=== PATIENT | male | born 1950 | race Caucasian/White ===

== ENCOUNTER 2020-03-27 07:01 | Outpatient (REF) | payer MEDICARE, SELFPAY ==
[2020-03-27 07:36] LABS: MANUAL DIFF FLAG NO
[2020-03-27 07:40] LABS: Basophils Percent Auto 0.3 % (0-2); Eosinophils Absolute Auto 0.1 X10*3/uL (0.0-0.4); Eosinophils Percent Auto 2.2 % (0-4); Hematocrit 43.2 % (42-52); Hemoglobin 14.6 g/dl (14.0-18.0); Imm Gran Abs Auto 0.02 X10*3/uL (0.00-0.03); Imm Gran Pct Auto 0.3 % (0.0-0.4); Lymphocytes Absolute Auto 1.9 X10*3/uL (1.2-4.9); Lymphocytes Percent Auto 32.2 % (20-40); Mean Corpuscular HGB Conc 33.8 g/dl (31.0-36.0); Mean Corpuscular Hemoglobin 31.9 pg (27.0-33.0); Mean Corpuscular Volume 94.3 fL (80-98); Mean Platelet Volume 10.1 fL (9.4-12.4); Monocytes Absolute Auto 0.5 X10*3/uL (0.1-1.2); Monocytes Percent Auto 8.8 % (2-11); Neutrophils Absolute Auto 3.3 X10*3/uL (2.0-8.3); Neutrophils Percent Auto 56.2 % (45-73); Platelet Count 268 X10*3/uL (160-400); Red Blood Count 4.58 X10*6/uL (4.60-5.80); Red Cell Distribution Width 12.4 % (11.0-16.0); White Blood Count 5.9 X10*3/uL (4.8-10.8)
[2020-03-27 08:00] LABS: Alanine Aminotransferase 23 U/L (0-40); Albumin Level 4.8 g/dL (3.5-5.0); Alkaline Phosphatase 75 U/L (39-117); Anion Gap 15 (12-20); Aspartate Amino Transferase 25 U/L (5-37); Bilirubin Total 0.5 mg/dL (0.0-1.0); Blood Urea Nitrogen 14 mg/dL (9-16); Calcium 9.5 mg/dL (8.4-10.2); Carbon Dioxide 29 mmol/L (22-29); Chloride 102 mmol/L (96-108); Cholesterol 191 mg/dL; Estimated Glomerular Filt Rate > 60; Glucose Random 125 mg/dL (60-115); HDL Cholesterol 47 mg/dL; LDL Cholesterol Calculated 118 mg/dl; Potassium 4.5 mmol/l (3.3-5.1); Sodium 141 mmol/L (135-145); Total Protein 7.3 g/dL (6.5-8.0); Triglycerides 132 mg/dL
[2020-03-27 08:20] LABS: Prostate Specific Antigen Scr 0.65 ng/mL (<0.05-4.0)
== END 2020-03-27 07:02 | disposition home or self-care (01) ==
LOC: HO.LAB 07:01
PROVIDERS: Visit Provider Internal Medicine
DX: M51.36 Other intervertebral disc degeneration, lumbar region (principal); R73.01 Impaired fasting glucose; E78.00 Pure hypercholesterolemia, unspecified; I10 Essential (primary) hypertension
CPT/HCPCS: 36415; 80053; 80061; 84153; 84443; 85025

== ENCOUNTER 2020-10-09 06:50 | Outpatient (REF) | payer MEDICARE, SELFPAY ==
[2020-10-09 07:36] LABS: MANUAL DIFF FLAG NO
[2020-10-09 07:40] LABS: Basophils Percent Auto 0.6 % (0-2); Eosinophils Absolute Auto 0.1 X10*3/uL (0.0-0.4); Hematocrit 41.1 % (42-52); Hemoglobin 14.1 g/dl (14.0-18.0); Imm Gran Abs Auto 0.03 X10*3/uL (0.00-0.03); Imm Gran Pct Auto 0.5 % (0.0-0.4); Lymphocytes Absolute Auto 1.9 X10*3/uL (1.2-4.9); Lymphocytes Percent Auto 29.3 % (20-40); Mean Corpuscular HGB Conc 34.3 g/dl (31.0-36.0); Mean Corpuscular Hemoglobin 31.9 pg (27.0-33.0); Mean Platelet Volume 10.5 fL (9.4-12.4); Monocytes Absolute Auto 0.6 X10*3/uL (0.1-1.2); Monocytes Percent Auto 8.5 % (2-11); Neutrophils Absolute Auto 3.8 X10*3/uL (2.0-8.3); Neutrophils Percent Auto 59.1 % (45-73); Platelet Count 258 X10*3/uL (160-400); Red Blood Count 4.42 X10*6/uL (4.60-5.80); Red Cell Distribution Width 12.1 % (11.0-16.0); White Blood Count 6.5 X10*3/uL (4.8-10.8)
[2020-10-09 08:00] LABS: Alanine Aminotransferase 21 U/L (0-40); Albumin Level 4.6 g/dL (3.5-5.0); Alkaline Phosphatase 65 U/L (39-117); Anion Gap 13 (12-20); Aspartate Amino Transferase 25 U/L (5-37); Bilirubin Total 0.3 mg/dL (0.0-1.0); Blood Urea Nitrogen 14 mg/dL (9-16); Calcium 9.3 mg/dL (8.4-10.2); Carbon Dioxide 26 mmol/L (22-29); Chloride 105 mmol/L (96-108); Cholesterol 171 mg/dL; Estimated Glomerular Filt Rate > 60; Glucose Random 117 mg/dL (60-115); HDL Cholesterol 39 mg/dL; LDL Cholesterol Calculated 94 mg/dl; Potassium 4.1 mmol/L (3.3-5.1); Sodium 140 mmol/L (135-145); Triglycerides 191 mg/dL
[2020-10-09 08:01] LABS: Estimated Average Glucose 111 mg/dL; Hemoglobin A1c % 5.5 %
[2020-10-09 08:23] LABS: Free T4 (Free Thyroxine) 0.92 ng/dL (0.71-1.85); Prostate Specific Antigen Scr 0.72 ng/mL (<0.05-4.0); Thyroid Stimulating Hormone 1.96 uIU/mL (0.32-4.0)
[2020-10-09 08:30] LABS: Folate > 20.0 ng/mL (> or = 4.0); Vitamin B12 431 pg/mL (200-900)
== END 2020-10-09 06:51 | disposition home or self-care (01) ==
LOC: HO.LAB 06:50
PROVIDERS: PCP Internal Medicine; Visit Provider Internal Medicine
DX: R73.01 Impaired fasting glucose (principal); I10 Essential (primary) hypertension; E78.00 Pure hypercholesterolemia, unspecified
CPT/HCPCS: 36415; 80053; 80061; 82607; 82746; 83036; 84153; 84439; 84443; 85025

== ENCOUNTER → 2021-05-30 10:46 | Outpatient (BNVA) | payer MEDICARE, SELFPAY | PROVIDERS: PCP Internal Medicine; Referring Provider Internal Medicine; Visit Provider Nurse Practitioner Family | DX: Z12.11 Encounter for screening for malignant neoplasm of colon (principal); K21.9 Gastro-esophageal reflux disease without esophagitis; D12.6 Benign neoplasm of colon, unspecified | CPT/HCPCS: 99202 ==

== ENCOUNTER 2021-06-22 06:58 | Outpatient (REF) | payer MEDICARE, SELFPAY ==
[2021-06-22 07:12] LABS: MANUAL DIFF FLAG NO
[2021-06-22 07:36] LABS: Basophils Percent Auto 0.7 % (0-2); Eosinophils Absolute Auto 0.1 X10*3/uL (0.0-0.4); Eosinophils Percent Auto 1.5 % (0-4); Hematocrit 41.6 % (42.0-52.0); Hemoglobin 14.1 g/dl (14.0-18.0); Imm Gran Abs Auto 0.01 X10*3/uL (0.00-0.03); Imm Gran Pct Auto 0.2 % (0.0-0.4); Lymphocytes Absolute Auto 2.1 X10*3/uL (1.2-4.9); Lymphocytes Percent Auto 35.9 % (20-40); Mean Corpuscular HGB Conc 33.9 g/dl (31.0-36.0); Mean Corpuscular Hemoglobin 31.9 pg (27.0-33.0); Mean Corpuscular Volume 94.1 fL (80.0-98.0); Mean Platelet Volume 10.3 fL (9.4-12.4); Monocytes Absolute Auto 0.5 X10*3/uL (0.1-1.2); Monocytes Percent Auto 9.1 % (2-11); Neutrophils Absolute Auto 3.1 x10*3/uL (2.0-8.3); Neutrophils Percent Auto 52.6 % (45-73); Platelet Count 249 X10*3/uL (160-400); Red Blood Count 4.42 X10*6/uL (4.60-5.80); Red Cell Distribution Width 12.5 % (11.0-16.0); White Blood Count 5.8 X10*3/uL (4.8-10.8)
[2021-06-22 07:44] LABS: Estimated Average Glucose 108 mg/dL; Hemoglobin A1c % 5.4 %
[2021-06-22 08:19] LABS: Alanine Aminotransferase 25 U/L (0-40); Albumin Level 4.7 g/dL (3.5-5.0); Alkaline Phosphatase 64 U/L (39-117); Anion Gap 11 (12-20); Aspartate Amino Transferase 25 U/L (5-37); Bilirubin Total 0.8 mg/dL (0.0-1.0); Blood Urea Nitrogen 15 mg/dL (9-16); Calcium 9.7 mg/dL (8.4-10.2); Carbon Dioxide 27 mmol/L (22-29); Chloride 104 mmol/L (96-108); Cholesterol 172 mg/dL; Estimated Glomerular Filt Rate > 60; Glucose Random 108 mg/dL (60-115); HDL Cholesterol 41 mg/dL; LDL Cholesterol Calculated 105 mg/dl; Potassium 4.1 mmol/L (3.3-5.1); Sodium 138 mmol/L (135-145); Total Protein 7.1 g/dL (6.5-8.0); Triglycerides 130 mg/dL
[2021-06-22 08:42] LABS: Free T4 (Free Thyroxine) 1.04 ng/dL (0.71-1.85); Prostate Specific Antigen Scr 0.66 ng/mL (<0.05-4.0); Thyroid Stimulating Hormone 1.64 uIU/mL (0.32-4.0)
[2021-06-22 08:58] LABS: Folate > 20.0 ng/mL (> or = 4.0); Vitamin B12 484 pg/mL (200-900)
== END 2021-06-22 06:59 | disposition home or self-care (01) ==
LOC: HO.LAB 06:58
PROVIDERS: PCP Internal Medicine; Visit Provider Internal Medicine
DX: Z12.5 Encounter for screening for malignant neoplasm of prostate (principal); R73.01 Impaired fasting glucose; I10 Essential (primary) hypertension; K21.9 Gastro-esophageal reflux disease without esophagitis; E78.00 Pure hypercholesterolemia, unspecified
CPT/HCPCS: 36415; 80053; 80061; 82607; 82746; 83036; 84153; 84439; 84443; 85025

== ENCOUNTER 2021-07-17 07:59 | Day surgery (SDC) | payer MEDICARE, SELFPAY ==
[2021-07-12 13:53] VITALS: BMI 27.9
--- NOTE | 2021-07-16 12:13 | P.CONAN_ITS ---
Documented by User: Moraima Chu NP 07/16/21 12:16 HPI - Anesthesia Eval Consult details Narrative: 71yo F for Colonoscopy PMFSH Active Problems Active Problems: All Active Problems (Updated 07/11/21 @ 09:03 by Rocky Nelson MD) Left lateral knee pain (Acute) Tubular adenoma of colon (Acute) Annual physical exam (Acute) GERD (gastroesophageal reflux disease) (Acute) DDD (degenerative disc disease), lumbar (Acute) Impaired fasting blood sugar (Acute) Hypercholesteremia (Acute) Hypertension (Acute) Past Medical History Medical History Anxiety and depression DDD (degenerative disc disease), lumbar Erectile dysfunction GERD (gastroesophageal reflux disease) Hypercholesteremia Hypertension Impaired fasting blood sugar Peptic ulcer disease Family History Family History Father Esophageal cancer Hypertension Mother Hypertension Sister No problems noted. Surgical History Surgical History History of inguinal hernia repair Hx of colonoscopy Hx of umbilical hernia repair Social History Social History Housing: House Alcohol intake: never Patient Tobacco Use Status: Never used Tobacco e-Cigarette/Vaping Use: Never Used Second Hand Smoke Exposure: No Current occupational status: retired Cognitive needs: No Hearing needs: No Vision needs: No Meds Allergies Allergy/AdvReac Type Severity Reaction Status Date / Time No Known Allergies Allergy Verified 07/11/21 08:48 [No Known Allergies*] Home Medications Medication Instructions Recorded Confirmed Last Taken Type aspirin 81 mg tablet,delayed 81 mg PO DAILY 12/23/19 07/11/21 Unknown History release (Adult Aspirin Regimen) multivitamin 1 tab PO DAILY 12/23/19 07/11/21 Unknown History omega-3 fatty acids 1,000 mg 1,000 mg PO DAILY 12/23/19 07/11/21 Unknown History capsule (Fish Oil Concentrate) cholecalciferol (vitamin D3) 25 25 mcg PO DAILY 04/03/20 07/11/21 Unknown History mcg (1,000 unit) capsule Exam Exam Date and Time: July 16, 2021 1213 Height,Weight and Vital Signs: Height 5 ft 8 in Weight 83.461 kg Pertinent Lab Results Pertinent Lab Results: Laboratory Tests 06/22/21 06/22/21 07:11 07:11 WBC 5.8 Hgb 14.1 Hct 41.6 L Plt Count 249 Sodium 138 Potassium 4.1 Chloride 104 Carbon Dioxide 27 BUN 15 Creatinine 0.83 Assessment and Plan Assessment Anesthesia Assessment: Chart Reviewed Documented by User: Josué Estrada MD 07/17/21 16:43 HPI - Anesthesia Eval Consult details Narrative: 71yo M for Colonoscopy Chronic back pain , occasionally radiates to lower extremities . [facility] Past Medical History Medical History Anxiety and depression DDD (degenerative disc disease), lumbar Erectile dysfunction GERD (gastroesophageal reflux disease) Hypercholesteremia Hypertension Impaired fasting blood sugar Peptic ulcer disease Family History Family History Father Esophageal cancer Hypertension Mother Hypertension Sister No problems noted. Family history of problems with anesthesia: No Surgical History Surgical History History of inguinal hernia repair Hx of colonoscopy Hx of umbilical hernia repair History of Problems with Anesthesia: No Social History Social History Housing: House Alcohol intake: never Patient Tobacco Use Status: Never used Tobacco e-Cigarette/Vaping Use: Never Used Second Hand Smoke Exposure: No Current occupational status: retired Cognitive needs: No Hearing needs: No Vision needs: No Meds Allergies Allergy/AdvReac Type Severity Reaction Status Date / Time No Known Allergies Allergy Verified 07/11/21 08:48 [No Known Allergies*] Home Medications Medication Instructions Recorded Confirmed Last Taken Type aspirin 81 mg tablet,delayed 81 mg PO DAILY 12/23/19 07/11/21 Unknown History release (Adult Aspirin Regimen) multivitamin 1 tab PO DAILY 12/23/19 07/11/21 Unknown History omega-3 fatty acids 1,000 mg 1,000 mg PO DAILY 12/23/19 07/11/21 Unknown History capsule (Fish Oil Concentrate) cholecalciferol (vitamin D3) 25 25 mcg PO DAILY 04/03/20 07/11/21 Unknown History mcg (1,000 unit) capsule Exam Airway Mallampati Class: II TM Dist: >3cm Neck ROM: Full Loose/Missing/Broken Teeth: Yes (Poor dentition ) Heart: S1, S2 Lungs: b/l breath sounds Assessment and Plan Assessment Anesthesia Assessment: Anesthesia Plan Discussed Final Anesthetic Review Family History of Problems with Anesthesia: No History of Problems with Anesthesia: No NPO: Yes ASA Class: III Final Preanesthetic Review: Meds/Allgs Chart Reviewed, Consent Obtained/Reviewed and Anes Risks/Benef Reviewed Patient Risk: Intermediate Procedure Risk: Intermediate Anesthetic Plan Anesthetic Plan: MAC: Disposition: Standard PACU
[2021-07-17 08:34] VITALS: BP 161/73; PULSE 90; RESP 18; TEMP 36.8; O2SAT 98
[2021-07-17] MEDS: Lactated Ringers 1,000 ML 100 ML IVCONT (08:44)
--- NOTE | 2021-07-17 08:45 | PC.NURSE ---
notified dr. montaño of pts frequent pvc's/episodes of in/out of bigeminy. pt denies sob, chest pain or dizziness. lungs clear bilat. iv #20 to r wrist, tolerated well. LR ivf infusing as ordered.
--- NOTE | 2021-07-17 09:01 | MHC.SHP ---
Pre-Procedural Eval Section A Date of Service: 07/17/21 Section B Chief Complaint: screening Relevant Family History (Specify if Yes): No Relevant Social History: None Present Medications: see Short Stay Collaborative assessment Medical History: Significant History (Anxiety and depression DDD (degenerative disc disease), lumbar Erectile dysfunction GERD (gastroesophageal reflux disease) Hypercholesteremia Hypertension Impaired fasting blood sugar Peptic ulcer disease) History of Previous Operations: Relevant previous surgery/procedure and date(s) (History of inguinal hernia repair Hx of colonoscopy Hx of umbilical hernia repair) Allergies: Allergies Allergy/AdvReac Type Severity Reaction Status Date / Time No Known Allergies Allergy Verified 07/11/21 08:48 [No Known Allergies*] Review of Systems Sugical H&P ROS: Negative: Constitution, Cardiovascular, Respiratory, Neurological, Psychiatric, Hem-Onc, Allergic/Immunologic, Gastrointestinal, Genitourinary, Musculoskeletal, Integumentary, Endocrine and Eyes/Ears/Nose/Throat Exam Surgical H&P Exam: Normal: HEENT, Normal: Heart, Normal: Lungs, Normal: Extremities, Normal: Abdomen, Normal: Skin and Normal: Neurological Plan Diagnosis/Plan: Unchanged I have reviewed the history and physical and performed a pertinent physical examination on my patient. No changes have occurred unless specified.
--- NOTE | 2021-07-17 09:02 | P.BOP_ITS ---
Brief Operative Note Date of Service: 07/17/21 Pre-op diagnosis: screening Post-op diagnosis: same Procedure: see op note Surgeon: Rajan Santos MD Anesthesia: MAC Was an Hydrogen Plant Operations Manager used for this Procedure?: No Estimated blood loss (mL): 0 Condition: stable Disposition: PACU
--- NOTE | 2021-07-17 09:03 | P.OP_ITS ---
Operative Note Operative Note Date of Service: 07/17/21 Narrative: Operative Information Procedure Description: Colonoscopy Indication: screening Anesthesia: MAC COLONOSCOPY Instrument: Olympus variable stiffness pediatric scope 190L Colonoscopy Monitoring: Vital signs and clinical assessment, continuous EKG monitoring, Pulse oximetry, Carbon Dioxide monitoring and blood pressure monitoring were done throughout the procedure. Colon withdrawal time was 9 minutes. Procedure: The patient was placed in the left lateral decubitis position and pre-procedure medications were administered. After a digital rectal examination of the ano-rectum, the video colonoscope was inserted into the rectum and advanced through the colon to the cecum/TI. The colonoscope was slowly withdrawn in a retrograde panoramic fashion and the colon mucosa was carefully examined including a retroflexed view of the rectum. Findings and interventions are described below. Procedure Difficulty: easy Findings: Terminal Ileum-normal Cecum:normal right sided retroflexion-normal Ascending Colon: normal Transverse Colon - 10-12 mm sessile polyp removed with cold snare Descending Colon:normal Sigmoid Colon: moderate severe diverticulosis, with mucosal hypertrophy and luminal narrowing Rectum: Retroflexion with moderate sized internal hemorrhoids, grade I Anorectum - normal Colon preparation: [place] Bowel Preparation Scale Right colon; 2 Transverse colon: 2 Left colon; 2 (0 = Unprepared colon segment with mucosa not seen due to solid stool that cannot be cleared. 1 = Portion of mucosa of the colon segment seen, but other areas of the colon segment not well seen due to staining, residual stool and/or opaque liquid. 2 = Minor amount of residual staining, small fragments of stool and/or opaque liquid, but mucosa of colon segment seen well. 3 = Entire mucosa of colon segment seen well with no residual staining, small fragments of stool or opaque liquid) Impression and Post Procedure Diagnosis: polyp internal hemorrhoids diverticular disease Plan: High fiber diet leaflet Avoid straining at stool, epsom salts and sitz bath, anusol supps or cream Repeat Colonoscopy in 5-6 years due to adenomatous appearing polyp or earlier if clinically indicated Above findings were reviewed with the patient and relevant handouts were provided if indicated.
[2021-07-17 09:46] VITALS: BP 99/56; RESP 16; TEMP 36.5; O2SAT 97
[2021-07-17 10:01] VITALS: BP 121/81; PULSE 73; RESP 18; TEMP 37.6; O2SAT 97
== END 2021-07-17 10:56 | disposition home or self-care (01) ==
PROVIDERS: PCP Internal Medicine; Visit Provider Internal Medicine Gastroenterology
PROC: 0DJD8ZZ Inspection of Lower Intestinal Tract, Via Natural or Artificial Opening Endoscopic (ICD-10-PCS; CPT 45378; principal; 2021-07-17 09:20)
DX: Z12.11 Encounter for screening for malignant neoplasm of colon (principal); Z86.010 Personal history of colon polyps; D12.3 Benign neoplasm of transverse colon; K57.30 Diverticulosis of large intestine without perforation or abscess without bleeding; K64.0 First degree hemorrhoids; K63.89 Other specified diseases of intestine; K21.9 Gastro-esophageal reflux disease without esophagitis; I10 Essential (primary) hypertension; E78.00 Pure hypercholesterolemia, unspecified; R73.01 Impaired fasting glucose; F41.8 Other specified anxiety disorders; E55.9 Vitamin D deficiency, unspecified; Z79.82 Long term (current) use of aspirin; Z79.899 Other long term (current) drug therapy
CPT/HCPCS: 45385; 88305

== ENCOUNTER 2022-07-25 07:04 | Outpatient (REF) | payer MEDICARE, SELFPAY ==
[2022-07-25 07:13] LABS: MANUAL DIFF FLAG NO
[2022-07-25 07:40] LABS: Basophils Percent Auto 0.6 % (0-2); Eosinophils Absolute Auto 0.1 X10*3/uL (0.0-0.4); Eosinophils Percent Auto 1.4 % (0-4); Hematocrit 42.9 % (42.0-52.0); Hemoglobin 14.8 g/dl (14.0-18.0); Imm Gran Abs Auto 0.01 X10*3/uL (0.00-0.03); Imm Gran Pct Auto 0.2 % (0.0-0.4); Lymphocytes Absolute Auto 2.1 X10*3/uL (1.2-4.9); Mean Corpuscular HGB Conc 34.5 g/dl (31.0-36.0); Mean Corpuscular Hemoglobin 32.5 pg (27.0-33.0); Mean Corpuscular Volume 94.3 fL (80.0-98.0); Mean Platelet Volume 10.3 fL (9.4-12.4); Monocytes Absolute Auto 0.6 X10*3/uL (0.1-1.2); Neutrophils Absolute Auto 3.5 x10*3/uL (2.0-8.3); Neutrophils Percent Auto 55.8 % (45-73); Platelet Count 257 X10*3/uL (160-400); Red Blood Count 4.55 X10*6/uL (4.60-5.80); Red Cell Distribution Width 12.3 % (11.0-16.0); White Blood Count 6.3 X10*3/uL (4.8-10.8)
[2022-07-25 07:43] LABS: Estimated Average Glucose 111 mg/dL; Hemoglobin A1c % 5.5 %
[2022-07-25 09:08] LABS: Alanine Aminotransferase 21 U/L (0-40); Albumin Level 4.7 g/dL (3.5-5.0); Alkaline Phosphatase 61 U/L (39-117); Anion Gap 13 (12-20); Aspartate Amino Transferase 25 U/L (5-37); Bilirubin Total 0.7 mg/dL (0.0-1.0); Blood Urea Nitrogen 16 mg/dL (9-16); Calcium 9.6 mg/dL (8.4-10.2); Carbon Dioxide 27 mmol/L (22-29); Chloride 103 mmol/L (96-108); Cholesterol 193 mg/dL; Estimated Glomerular Filt Rate > 60; Glucose Random 116 mg/dL (60-115); HDL Cholesterol 41 mg/dL; LDL Cholesterol Calculated 111 mg/dl; Potassium 4.4 mmol/L (3.3-5.1); Sodium 139 mmol/L (135-145); Total Protein 7.1 g/dL (6.5-8.0); Triglycerides 209 mg/dL
[2022-07-25 09:38] LABS: Folate 16.2 ng/mL (> or = 4.0); Free T4 (Free Thyroxine) 0.84 ng/dL (0.71-1.85); Thyroid Stimulating Hormone 2.59 uIU/mL (0.32-4.0); Vitamin B12 454 pg/mL (200-900)
== END 2022-07-25 07:05 | disposition home or self-care (01) ==
LOC: HO.LAB 07:04
PROVIDERS: PCP Internal Medicine; Visit Provider Internal Medicine
DX: R73.01 Impaired fasting glucose (principal); E78.00 Pure hypercholesterolemia, unspecified
CPT/HCPCS: 36415; 80053; 80061; 82607; 82746; 83036; 84439; 84443; 85025

== ENCOUNTER 2022-12-17 08:07 | Outpatient (REF) | payer MEDICARE, SELFPAY ==
[2022-12-17 09:46] LABS: Alanine Aminotransferase 23 U/L (0-40); Albumin Level 4.6 g/dL (3.5-5.0); Alkaline Phosphatase 64 U/L (39-117); Aspartate Amino Transferase 26 U/L (5-37); Bilirubin Direct 0.2 mg/dL (0.0-0.5); Bilirubin Total 0.6 mg/dL (0.0-1.0); Total Protein 7.2 g/dL (6.5-8.0)
== END 2022-12-17 08:08 | disposition home or self-care (01) ==
LOC: HO.LAB 08:07
PROVIDERS: PCP Internal Medicine; Visit Provider Nurse Practitioner Gerontology
DX: B35.1 Tinea unguium (principal)
CPT/HCPCS: 36415; 80076

== ENCOUNTER 2023-01-27 13:20 | Outpatient (AMB) | payer MEDICARE, SELFPAY ==
--- NOTE | 2023-01-27 13:27 | MHC.PC.OV ---
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 Required: No Accompanied by: Self / Same As Patient Allergies No Known Allergies [No Known Allergies*] Allergy (Verified 01/27/23 13:33) Medication List - Last Reconciled 01/27/23 by Rocky Nelson MD aspirin (Adult Aspirin Regimen) 81 mg PO DAILY benazepril 20 mg PO DAILY celecoxib (Celebrex) 200 mg PO DAILY cholecalciferol (vitamin D3) 25 mcg PO DAILY multivitamin 1 tab PO DAILY omega-3 fatty acids (Fish Oil Concentrate) 1,000 mg PO DAILY oxycodone-acetaminophen 5-325 mg (Percocet) 1 tab PO Q8H PRN pantoprazole 20 mg PO DAILY pravastatin 40 mg PO DAILY 90 days Tobacco use date assessed: 04/10/22 Fall risk assessment: No Falls in past year Last assessed Fall Risk: 01/27/23 Dental Screening Dental Screen Date: 01/27/23 Did you have a dental visit in the last 12 months?: Yes Did you have a dental problem in the last 6 months where you did not have access to dental care?: No Was dental information given to patient?: Patient has dentist HPI CLBP HPI Details 72-year-old overweight male with lumbar degenerative disc disease on narcotic pain medication, hypertension hypercholesterolemia impaired glucose tolerance GERD last seen in July 2022. Patient is up-to-date with colonoscopy July 2021. had a rash dermatology seen and was rx antifungal - better but weight increase pain on the lower back, now starting exercises [facility] Medical History (Updated 01/27/23 @ 14:10 by Rocky Nelson MD) Peptic ulcer disease Anxiety and depression Erectile dysfunction GERD (gastroesophageal reflux disease) DDD (degenerative disc disease), lumbar Impaired fasting blood sugar Hypercholesteremia Hypertension Surgical History Hx of colonoscopy History of inguinal hernia repair Hx of umbilical hernia repair Family History Father Esophageal cancer Hypertension Mother Hypertension Sister No problems noted. Social History Housing: House Alcohol intake: never Patient Tobacco Use Status: Never used Tobacco e-Cigarette/Vaping Use: Never Used Second Hand Smoke Exposure: No service: No Current occupational status: retired Cognitive needs: No Hearing needs: No Vision needs: No Questionnaire Thrive Questionnaire Date Thrive assessed: 04/10/22 DIEGO-7 AMB Questionnaire DIEGO-7 Date DIEGO - 7 assessed: 04/10/22 Source: Developed by Drs. Farhan Fuentes, Tavia Meléndez, Surendra Dumont and colleagues, with an educational merle from [employer]. Physical exam (Primary Care) Vital Signs: Last Vital Signs Pulse 90 01/27/23 13:30 Resp 17 01/27/23 13:30 BP 148/90 H 01/27/23 13:30 Pulse Ox 98 01/27/23 13:30 Oxygen Delivery Method Room Air 01/27/23 13:30 BMI result Body Mass Index 28.8 Tobacco/Smoking Status: Tobacco use Status Tobacco use date assessed 04/10/22 01/27/23 13:29 Patient Tobacco Use Status Never used Tobacco 01/27/23 13:29 e-Cigarette/Vaping Use Never Used 01/27/23 13:29 Thrive Assessment: Date of Thrive Assessment Date Thrive assessed 04/10/22 01/27/23 13:29 Const General: alert; No acute distress Eyes Conjunctivae: conjunctivae normal Resp Auscultation: clear to auscultation bilaterally Cardio Rate: regular rate Rhythm: regular rhythm GI Inspection: Yes normal to inspection Extrem General: Yes normal to inspection and No edema Results AMB Hemoglobin A1c AMB Hemoglobin A1c 6.1 % Last Edit by FATEMEH Hirsch on 01/27/23 13:39 Results Reviewed Results Reviewed: Laboratory Last Values Hgb A1c (Clinic) 6.1 % (4.0-6.0) H 01/27/23 13:39 Assessment and Plan Assessment & Plan (1) Hypertension: Code(s): I10 - Essential (primary) hypertension Qualifiers: Hypertension type: essential hypertension Qualified Code(s): I10 - Essential (primary) hypertension Plan: Continue with blood pressure medication. Decrease salt intake and exercise patient is on benazepril 20 mg once a day (2) Hypercholesteremia: Code(s): E78.00 - Pure hypercholesterolemia, unspecified Plan: Avoid fried foods, chicken skin, eggs, butter margarine, pastries and meat. Be it pork or beef they have a lot of cholesterol LDL goal of less than 130 and triglyceride of less than 150. Patient on pravastatin 40 mg once a day (3) Impaired fasting blood sugar: Code(s): R73.01 - Impaired fasting glucose Plan: Decrease the amount of carbohydrate intake, pasta, bread, rice and potatoes are all sugar and that is aside from all the sweet stuff, remember that fruits are good but they are Sweet also. Patient's hemoglobin A1c is rising (4) DDD (degenerative disc disease), lumbar: Comment: MRI 2008 with disc herniation with compression L5 Code(s): M51.36 - Other intervertebral disc degeneration, lumbar region Plan: Narcotic pain meds: Is being prescribed with the understanding that these medications are potentially addictive and should be used only when absolutely necessary and must always be secured. Any remaining pills should be safely disposed off appropriately. Patient is advised that narcotics can impaired judgment and one should not drive or operate heavy machinery while taking these medications. Never share these medications with anybody and do not leave them unattended. They will not be replaced under any circumstances. (5) GERD (gastroesophageal reflux disease): Code(s): K21.9 - Gastro-esophageal reflux disease without esophagitis Qualifiers: Esophagitis presence: without esophagitis Qualified Code(s): K21.9 - Gastro-esophageal reflux disease without esophagitis Plan: Avoid the foods that causes that usually spicy foods, tomato products, juices, coffee, soda and foods that your sensitive to. After eating do not lie down, allow 3-4 hours before in lie down. And keep the head of bed above 30 degrees to avoid the acid from going up. (6) Overweight (BMI 25.0-29.9): Code(s): E66.3 - Overweight Orders: Orders AMB Hemoglobin A1c Today R73.01 - Impaired fasting glucose Medications: New celecoxib (Celebrex) 200 mg PO DAILY 30 caps 3RF M51.36 - Other intervertebral disc degeneration, lumbar region Coding Level of Care Code Est Pt Level 4 (27653) Diagnoses Essential hypertension I10 Hypertension type: essential hypertension Hypercholesteremia E78.00 Impaired fasting blood sugar R73.01 DDD (degenerative disc disease), lumbar M51.36 Gastroesophageal reflux disease without esophagitis K21.9 Esophagitis presence: without esophagitis Overweight (BMI 25.0-29.9) E66.3
[2023-01-27 13:30] VITALS: BP 148/90; PULSE 90; RESP 17; O2SAT 98; BMI 28.8
== END 2023-01-27 15:30 | disposition home or self-care (01) ==
PROVIDERS: PCP Internal Medicine; Visit Provider Internal Medicine
DX: R73.01 Impaired fasting glucose (principal)
CPT/HCPCS: 83036; 99214

== ENCOUNTER 2023-04-24 08:43 | Outpatient (AMB) | payer MEDICARE, SELFPAY ==
[2023-04-24 08:52] VITALS: BP 136/70; PULSE 87; O2SAT 99; BMI 28.4
--- NOTE | 2023-04-24 08:52 | MHC.PC.OV ---
Vital Signs 04/24/23 08:52 Height 5 ft 8 in Weight 187 lb 0.6 oz BMI 28.4 BP 136/70 Blood Pressure Location Lt brachial Position Sitting Pulse 87 Pulse Source Pulse Oximeter Pulse Oximetry (%) 99 Oxygen Delivery Method Room Air Intake Visit Reasons: Annual Exam Intake Note: Patient is here today for a physical. 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 Allergies No Known Allergies [No Known Allergies*] Allergy (Verified 04/24/23 08:56) Medication List - Last Reconciled 04/24/23 by Rocky Nelson MD aspirin (Adult Aspirin Regimen) 81 mg PO DAILY benazepril 20 mg PO DAILY celecoxib (Celebrex) 200 mg PO DAILY cholecalciferol (vitamin D3) 25 mcg PO DAILY multivitamin 1 tab PO DAILY omega-3 fatty acids (Fish Oil Concentrate) 1,000 mg PO DAILY oxycodone-acetaminophen 5-325 mg (Percocet) 1 tab PO Q8H PRN pantoprazole 20 mg PO DAILY pravastatin 40 mg PO DAILY 90 days Tobacco use date assessed: 04/24/23 Fall risk assessment: No Falls in past year Last assessed Fall Risk: 04/24/23 Dental Screening Dental Screen Date: 04/24/23 Did you have a dental visit in the last 12 months?: Yes Did you have a dental problem in the last 6 months where you did not have access to dental care?: No Was dental information given to patient?: Patient has dentist HPI Annual Exam HPI Details 72-year-old overweight male with a history of hypertension hypercholesterolemia impaired glucose tolerance not GERD lumbar degenerative disc disease on narcotic pain medication coming in for physical exam last seen in January 2023. Patient's colonoscopy is up-to-date July 2021 5 years July 2022 last blood PFSH Medical History (Updated 01/27/23 @ 14:10 by Rocky Nelson MD) Peptic ulcer disease Anxiety and depression Erectile dysfunction GERD (gastroesophageal reflux disease) DDD (degenerative disc disease), lumbar Impaired fasting blood sugar Hypercholesteremia Hypertension Surgical History Hx of colonoscopy History of inguinal hernia repair Hx of umbilical hernia repair Family History Father Esophageal cancer Hypertension Mother Hypertension Sister No problems noted. Social History Housing: House Alcohol intake: never Patient Tobacco Use Status: Never used Tobacco e-Cigarette/Vaping Use: Never Used Second Hand Smoke Exposure: No service: No Current occupational status: retired Cognitive needs: No Hearing needs: No Vision needs: No Questionnaire Thrive Questionnaire Date Thrive assessed: 04/24/23 I am a: Patient What is your living situation today?: I have a steady place to live Within the past 12 months, did the food you bought not last and you didn't have the money to get more?: Never true Within the past 12 months, did you worry whether your food would run out before you got money to buy more?: Never true Do you have trouble paying for medicines?: No Do you have trouble getting transportation to medical appointments?: No Do you have trouble paying your heating and electricity bill?: No Do you have trouble taking care of your child, family member or friend?: No Do you have trouble with day-to-day activities such as bathing, preparing meals, shopping, managing finances, etc.?: No Are you currently unemployed and looking for a job?: No Are you interested in more education?: No Please select the resources that you would like help with: None THRIVE Score: 0 AUDIT C Alcohol Use Questionnaire (AUDIT-C) 1. How often do you have a drink containing alcohol?: Never 2. How many drinks containing alcohol do you have on a typical day when you are drinking?: 1 or 2 (0) 3. How often do you have six or more drinks on one occasion?: Never Total Score: 0 DIEGO-7 AMB Questionnaire DIEGO-7 Date DIEGO - 7 assessed: 04/24/23 Feeling nervous, anxious, or on edge: 0 = Not at all Not being able to stop or control worryin = Not at all Worrying too much about different things: 0 = Not at all Trouble relaxin = Not at all Being so restless that it is hard to sit still: 0 = Not at all Becoming easily annoyed or irritable: 0 = Not at all Feeling afraid as if something awful might happen: 0 = Not at all Total DIEGO-7 score (0-4 normal; 5-9 mild; 10-14 moderate; 15-21 severe): 0 Source: Developed by Drs. Farhan Fuentes, Tavia Meléndez, Surendra Dumont and colleagues, with an educational merle from [employer]. Review of Systems Const Denies poor appetite and Denies weakness Eyes Denies no additional complaints ENT Reports Normal hearing present, Denies dizziness, Denies nasal congestion, Denies tinnitus and Denies sore throat Card Denies chest pain, Denies syncope, Denies rapid heart rate and Denies dyspnea Resp Denies cough and Denies dyspnea GI Denies change in stool character, Reports constipation, Denies diarrhea, Denies nausea and Denies vomiting Denies dysuria and Denies urinary frequency Neuro Reports Normal hearing present, Denies confusion, Denies dizziness, Denies syncope and Denies weakness Psych Denies confusion Physical exam (Primary Care) Vital Signs: Last Vital Signs Pulse 87 04/24/23 08:52 BP 136/70 04/24/23 08:52 Pulse Ox 99 04/24/23 08:52 Oxygen Delivery Method Room Air 04/24/23 08:52 BMI result Body Mass Index 28.4 Tobacco/Smoking Status: Tobacco use Status Tobacco use date assessed 04/24/23 04/24/23 08:56 Patient Tobacco Use Status Never used Tobacco 04/24/23 08:56 e-Cigarette/Vaping Use Never Used 04/24/23 08:56 Thrive Assessment: Date of Thrive Assessment Date Thrive assessed 04/24/23 04/24/23 08:56 Const General: No confusion Orientation/consciousness: No confusion HENMT Head: Yes normocephalic Ears: external ears normal and TM's normal bilaterally Face and sinus: Yes normal facial exam Mouth: moist mucous membranes Throat: Yes tonsils normal Eyes Conjunctivae: conjunctivae normal Pupils: Equal, round and reactive pupils present and Pupil accommodation reflex normal Direct Ophthalmoscopy: normal light reflex Neck Neck: No lymphadenopathy Thyroid: Thyroid normal Chest Chest palpation & inspection: normal inspection of the chest Resp Effort & Inspection: normal respiratory effort and no audible wheezes Auscultation: clear to auscultation bilaterally, no crackles, no wheezes and lung sounds not diminished Cardio Rate: regular rate Rhythm: regular rhythm Peripheral pulses: radial pulses present and dorsalis pedis present GI Other: guaiac neg , enlarged prostate Palpation (GI): no masses Auscultation: normal bowel sounds and normoactive bowel sounds Male General Exam: Yes normal external exam Skin General skin exam: no rashes or lesions noted Rashes: no rashes Neuro General: No confusion Cranial nerves: Yes Equal, round and reactive pupils present and Yes Normal hearing present Cognition (Neuro): normal cognition Gait exam (Neuro): Normal gait present Motor exam (neuro): 5/5 motor strength present throughout Deep tendon reflexes (DTR's): Right brachioradialis reflex intensity grade: 2+, Left brachioradialis reflex intensity grade: 2+, Right patellar reflex intensity grade: 2+ and Left patellar reflex intensity grade: 2+ Extrem General: No edema Assessment and Plan Assessment & Plan (1) Annual physical exam: Code(s): Z00.00 - Encounter for general adult medical examination without abnormal findings (2) Hypertension: Code(s): I10 - Essential (primary) hypertension Qualifiers: Hypertension type: essential hypertension Qualified Code(s): I10 - Essential (primary) hypertension Plan: Continue with blood pressure medication. Decrease salt intake and exercise presently on benazepril 20 mg once a day (3) Hypercholesteremia: Code(s): E78.00 - Pure hypercholesterolemia, unspecified Plan: Avoid fried foods, chicken skin, eggs, butter margarine, pastries and meat. Be it pork or beef they have a lot of cholesterol LDL goal of less than 130 and triglyceride of less than 150. Patient on pravastatin 40 mg once (4) Impaired fasting blood sugar: Code(s): R73.01 - Impaired fasting glucose Plan: Decrease the amount of carbohydrate intake, pasta, bread, rice and potatoes are all sugar and that is aside from all the sweet stuff, remember that fruits are good but they are Sweet also. (5) DDD (degenerative disc disease), lumbar: Comment: MRI 2008 with disc herniation with compression L5 Code(s): M51.36 - Other intervertebral disc degeneration, lumbar region Plan: Narcotic pain meds: Is being prescribed with the understanding that these medications are potentially addictive and should be used only when absolutely necessary and must always be secured. Any remaining pills should be safely disposed off appropriately. Patient is advised that narcotics can impaired judgment and one should not drive or operate heavy machinery while taking these medications. Never share these medications with anybody and do not leave them unattended. They will not be replaced under any circumstances. (6) GERD (gastroesophageal reflux disease): Code(s): K21.9 - Gastro-esophageal reflux disease without esophagitis Qualifiers: Esophagitis presence: without esophagitis Qualified Code(s): K21.9 - Gastro-esophageal reflux disease without esophagitis Plan: Avoid the foods that causes that usually spicy foods, tomato products, juices, coffee, soda and foods that your sensitive to. After eating do not lie down, allow 3-4 hours before in lie down. And keep the head of bed above 30 degrees to avoid the acid from going up. Orders: Orders Complete Blood Count Auto Diff 3 Months E78.00 - Pure hypercholesterolemia, unspecified Free T4 (Free Thyroxine) 3 Months E78.00 - Pure hypercholesterolemia, unspecified Thyroid Stimulating Hormone 3 Months E78.00 - Pure hypercholesterolemia, unspecified Lipid Panel 3 Months E78.00 - Pure hypercholesterolemia, unspecified Comprehensive Met. Panel 3 Months E78.00 - Pure hypercholesterolemia, unspecified Prostate Specific Antigen Scr 3 Months E78.00 - Pure hypercholesterolemia, unspecified Vitamin B12 and Folate 3 Months E78.00 - Pure hypercholesterolemia, unspecified Hemoglobin A1c 3 Months R73.01 - Impaired fasting glucose Medications: Changed From benazepril 20 mg PO DAILY 90 tabs 3RF R73.01 - Impaired fasting glucose To benazepril 40 mg PO DAILY 90 days 90 tabs 3RF R73.01 - Impaired fasting glucose Coding Level of Care Code Est Pt Prev Care >65y(57122) Diagnoses Annual physical exam Z00.00 Essential hypertension I10 Hypertension type: essential hypertension Hypercholesteremia E78.00 Impaired fasting blood sugar R73.01 DDD (degenerative disc disease), lumbar M51.36 Gastroesophageal reflux disease without esophagitis K21.9 Esophagitis presence: without esophagitis
== END 2023-04-24 09:34 | disposition home or self-care (01) ==
PROVIDERS: Visit Provider Internal Medicine
DX: Z00.00 Encounter for general adult medical examination without abnormal findings (principal); I10 Essential (primary) hypertension; E78.00 Pure hypercholesterolemia, unspecified; R73.01 Impaired fasting glucose; M51.36 Other intervertebral disc degeneration, lumbar region; K21.9 Gastro-esophageal reflux disease without esophagitis
CPT/HCPCS: 99397

== ENCOUNTER 2023-07-24 07:16 | Outpatient (REF) | payer MEDICARE, SELFPAY ==
[2023-07-24 07:28] LABS: MANUAL DIFF FLAG NO
[2023-07-24 08:06] LABS: Estimated Average Glucose 120 mg/dL; Hemoglobin A1c % 5.8 % (<6.0)
[2023-07-24 08:07] LABS: Basophils Percent Auto 0.6 % (0-2); Eosinophils Absolute Auto 0.1 X10*3/uL (0.0-0.4); Eosinophils Percent Auto 1.7 % (0-4); Hematocrit 43.3 % (42.0-52.0); Hemoglobin 14.6 g/dl (14.0-18.0); Imm Gran Abs Auto 0.03 X10*3/uL (0.00-0.03); Imm Gran Pct Auto 0.4 % (0.0-0.4); Lymphocytes Absolute Auto 2.3 X10*3/uL (1.2-4.9); Lymphocytes Percent Auto 32.2 % (20-40); Mean Corpuscular HGB Conc 33.7 g/dl (31.0-36.0); Mean Corpuscular Hemoglobin 32.4 pg (27.0-33.0); Mean Corpuscular Volume 96.2 fL (80.0-98.0); Mean Platelet Volume 10.9 fL (9.4-12.4); Monocytes Absolute Auto 0.7 X10*3/uL (0.1-1.2); Monocytes Percent Auto 9.6 % (2-11); Neutrophils Absolute Auto 3.9 x10*3/uL (2.0-8.3); Neutrophils Percent Auto 55.5 % (45-73); Platelet Count 241 X10*3/uL (160-400); Red Cell Distribution Width 12.5 % (11.0-16.0); White Blood Count 7.1 X10*3/uL (4.8-10.8)
[2023-07-24 08:37] LABS: Alanine Aminotransferase 22 U/L (0-40); Albumin Level 4.5 g/dL (3.5-5.0); Alkaline Phosphatase 61 U/L (39-117); Anion Gap 16 (12-20); Aspartate Amino Transferase 22 U/L (5-37); Bilirubin Total 0.6 mg/dL (0.0-1.0); Blood Urea Nitrogen 14 mg/dL (9-16); Calcium 9.6 mg/dL (8.4-10.2); Carbon Dioxide 23 mmol/L (22-29); Chloride 103 mmol/L (96-108); Cholesterol 197 mg/dL (<200); Estimated Glomerular Filt Rate > 60; Glucose Random 130 mg/dL (60-115); HDL Cholesterol 46 mg/dL (>40); LDL Cholesterol Calculated 119 mg/dL (<100); Sodium 138 mmol/L (135-145); Total Protein 7.3 g/dL (6.5-8.0); Triglycerides 161 mg/dL (<150)
[2023-07-24 08:54] LABS: Free T4 (Free Thyroxine) 0.93 ng/dL (0.71-1.85)
[2023-07-24 09:02] LABS: Folate 13.7 ng/mL (> or = 4.0); Prostate Specific Antigen Scr 0.85 ng/mL (<0.05-4.0); Vitamin B12 544 pg/mL (200-900)
== END 2023-07-24 07:17 | disposition home or self-care (01) ==
LOC: HO.LAB 07:16
PROVIDERS: PCP Internal Medicine; Visit Provider Internal Medicine
DX: E78.00 Pure hypercholesterolemia, unspecified (principal); R73.01 Impaired fasting glucose; Z12.5 Encounter for screening for malignant neoplasm of prostate
CPT/HCPCS: 36415; 80053; 80061; 82607; 82746; 83036; 84153; 84439; 84443; 85025

== ENCOUNTER 2023-07-31 08:41 | Outpatient (AMB) | payer MEDICARE, SELFPAY ==
--- NOTE | 2023-07-31 08:46 | MHC.PC.OV ---
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 Accompanied by: Self / Same As Patient Allergies No Known Allergies [No Known Allergies*] Allergy (Verified 07/31/23 08:48) Medication List - Last Reconciled 07/31/23 by Rocky Nelson MD aspirin (Adult Aspirin Regimen) 81 mg PO DAILY benazepril 40 mg PO DAILY 90 days cholecalciferol (vitamin D3) 25 mcg PO DAILY multivitamin 1 tab PO DAILY naproxen sodium (Aleve) 440 mg (2 x 220 mg) PO DAILY omega-3 fatty acids (Fish Oil Concentrate) 1,000 mg PO DAILY pantoprazole 20 mg PO DAILY pravastatin 40 mg PO DAILY 90 days Tobacco use date assessed: 04/24/23 Fall risk assessment: No Falls in past year Last assessed Fall Risk: 07/31/23 Dental Screening Dental Screen Date: 04/24/23 HPI IGT HPI Details 73-year-old overweight male with hypertension, hypercholesterolemia impaired glucose tolerance lumbar degenerative disc disease on narcotic pain medication and GERD last seen for physical exam in April 2023. Patient's colonoscopy is up-to-date July 2021 [facility] Medical History (Updated 07/31/23 @ 09:16 by Rocky Nelson MD) Impaired fasting blood sugar Peptic ulcer disease Anxiety and depression Erectile dysfunction GERD (gastroesophageal reflux disease) DDD (degenerative disc disease), lumbar Hypercholesteremia Hypertension Surgical History Hx of colonoscopy History of inguinal hernia repair Hx of umbilical hernia repair Family History Father Esophageal cancer Hypertension Mother Hypertension Sister No problems noted. Social History Housing: House Alcohol intake: never Patient Tobacco Use Status: Never used Tobacco e-Cigarette/Vaping Use: Never Used Second Hand Smoke Exposure: No service: No Current occupational status: retired Cognitive needs: No Hearing needs: No Vision needs: Yes Questionnaire PHQ-9 Over the last 2 weeks, how often have you been bothered by any of the following problems? 1. Little interest or pleasure in doing things: not at all 2. Feeling down, depressed, or hopeless: not at all 3. Trouble falling or staying asleep, or sleeping too much: not at all 4. Feeling tired or having little energy: not at all 5. Poor appetite or overeating: not at all 6. Feeling bad about yourself - or that you are a failure or have let yourself or your family down: not at all 7. Trouble concentrating on things, such as reading the newspaper or watching television: not at all 8. Moving or speaking so slowly that other people could have noticed. Or the opposite - being so fidgety or restless that you have been moving around a lot more than usual: not at all 9. Thoughts that you would be better off or of hurting yourself in some way: not at all Total score: 0 Source: Developed by Drs. Farhan Fuentes, Tavia Meléndez, Surendra Dumont and colleagues, with an educational merle from [employer] Thrive Questionnaire Date Thrive assessed: 07/31/23 I am a: Patient What is your living situation today?: I have a steady place to live Within the past 12 months, did the food you bought not last and you didn't have the money to get more?: Never true Within the past 12 months, did you worry whether your food would run out before you got money to buy more?: Never true Do you have trouble paying for medicines?: No Do you have trouble getting transportation to medical appointments?: No Do you have trouble paying your heating and electricity bill?: No Do you have trouble taking care of your child, family member or friend?: No Do you have trouble with day-to-day activities such as bathing, preparing meals, shopping, managing finances, etc.?: No Are you currently unemployed and looking for a job?: No Are you interested in more education?: No Please select the resources that you would like help with: None Currently or been in a relationship where the following occur: no concerns reported THRIVE Score: 0 AUDIT C Alcohol Use Questionnaire (AUDIT-C) 1. How often do you have a drink containing alcohol?: Never Total Score: 0 DIEGO-7 AMB Questionnaire DIEGO-7 Date DIEGO - 7 assessed: 07/31/23 Feeling nervous, anxious, or on edge: 0 = Not at all Not being able to stop or control worryin = Not at all Worrying too much about different things: 0 = Not at all Trouble relaxin = Not at all Being so restless that it is hard to sit still: 0 = Not at all Becoming easily annoyed or irritable: 0 = Not at all Feeling afraid as if something awful might happen: 0 = Not at all Total DIEGO-7 score (0-4 normal; 5-9 mild; 10-14 moderate; 15-21 severe): 0 Source: Developed by Drs. Farhan Fuentes, Tavia Meléndez, Surendra Dumont and colleagues, with an educational merle from [employer] Physical exam (Primary Care) Vital Signs: Last Vital Signs Pulse 86 07/31/23 08:47 BP 130/70 07/31/23 08:47 Pulse Ox 96 07/31/23 08:47 Oxygen Delivery Method Room Air 07/31/23 08:47 BMI result Body Mass Index 28.7 Tobacco/Smoking Status: Tobacco use Status Tobacco use date assessed 04/24/23 07/31/23 08:52 Patient Tobacco Use Status Never used Tobacco 07/31/23 08:52 e-Cigarette/Vaping Use Never Used 07/31/23 08:52 PHQ-9: PHQ-9 Score PHQ-9: Total score 0 07/31/23 08:52 Thrive Assessment: Date of Thrive Assessment Date Thrive assessed 07/31/23 07/31/23 08:52 Currently or been in a relationship where the following occur: no concerns reported Const General: alert; No acute distress Eyes Conjunctivae: conjunctivae normal Resp Auscultation: clear to auscultation bilaterally Cardio Rate: regular rate Rhythm: regular rhythm GI Inspection: Yes normal to inspection Extrem General: Yes normal to inspection and No edema Assessment and Plan Assessment & Plan (1) Overweight (BMI 25.0-29.9): Code(s): E66.3 - Overweight Plan: Diet and exercise (2) Type 2 diabetes mellitus with hyperglycemia: Comment: [facility] Code(s): E11.65 - Type 2 diabetes mellitus with hyperglycemia Plan: Decrease the amount of carbohydrate intake, pasta, bread, rice and potatoes are all sugar and that is aside from all the sweet stuff, remember that fruits are good but they are Sweet also. Hemoglobin A1c is under control goal of less than 6.5 below. (3) Hypertension: Code(s): I10 - Essential (primary) hypertension Qualifiers: Hypertension type: essential hypertension Qualified Code(s): I10 - Essential (primary) hypertension Plan: Continue with blood pressure medication. Decrease salt intake and exercise presently on benazepril 40 mg once a day (4) Hypercholesteremia: Code(s): E78.00 - Pure hypercholesterolemia, unspecified Plan: Avoid fried foods, chicken skin, eggs, butter margarine, pastries and meat. Be it pork or beef they have a lot of cholesterol this time with diabetes LDL goal of less than 100 and triglyceride of less than 150. On pravastatin 40 mg once a day (5) DDD (degenerative disc disease), lumbar: Comment: MRI 2008 with disc herniation with compression L5 Code(s): M51.36 - Other intervertebral disc degeneration, lumbar region Plan: Patient did not Find Celebrex helpful and has taken Aleve. Advised to take with food at all times and keeping well hydrated. Will continue to monitor renal function. Orders: Orders Hemoglobin A1c 3 Months E11.65 - Type 2 diabetes mellitus with hyperglycemia Complete Blood Count Auto Diff 3 Months E11.65 - Type 2 diabetes mellitus with hyperglycemia Microalbumin, Random (w Creat) 3 Months E11.65 - Type 2 diabetes mellitus with hyperglycemia Comprehensive Met. Panel 3 Months E11.65 - Type 2 diabetes mellitus with hyperglycemia Creatinine Urine 3 Months E11.65 - Type 2 diabetes mellitus with hyperglycemia Vitamin B12 and Folate 3 Months E11.65 - Type 2 diabetes mellitus with hyperglycemia Medications: New naproxen sodium (Aleve) 440 mg (2 x 220 mg) PO DAILY 14 caps 0RF E11.65 - Type 2 diabetes mellitus with hyperglycemia Coding Level of Care Code Est Pt Level 4 (43994) Diagnoses Overweight (BMI 25.0-29.9) E66.3 Type 2 diabetes mellitus with hyperglycemia E11.65 Essential hypertension I10 Hypertension type: essential hypertension Hypercholesteremia E78.00 DDD (degenerative disc disease), lumbar M51.36
[2023-07-31 08:47] VITALS: BP 130/70; PULSE 86; O2SAT 96; BMI 28.7
== END 2023-07-31 09:25 | disposition home or self-care (01) ==
PROVIDERS: PCP Internal Medicine; Visit Provider Internal Medicine
DX: E66.3 Overweight (principal); E11.65 Type 2 diabetes mellitus with hyperglycemia; I10 Essential (primary) hypertension; E78.00 Pure hypercholesterolemia, unspecified; M51.36 Other intervertebral disc degeneration, lumbar region
CPT/HCPCS: 99214

== ENCOUNTER 2023-12-01 06:52 | Outpatient (REF) | payer MEDICARE, SELFPAY ==
[2023-12-01 07:05] LABS: MANUAL DIFF FLAG NO
[2023-12-01 07:49] LABS: Basophils Percent Auto 0.4 % (0-2); Eosinophils Absolute Auto 0.2 X10*3/uL (0.0-0.4); Eosinophils Percent Auto 3.1 % (0-4); Hematocrit 42.3 % (42.0-52.0); Hemoglobin 14.6 g/dl (14.0-18.0); Imm Gran Abs Auto 0.02 X10*3/uL (0.00-0.03); Imm Gran Pct Auto 0.3 % (0.0-0.4); Lymphocytes Absolute Auto 2.6 X10*3/uL (1.2-4.9); Lymphocytes Percent Auto 38.2 % (20-40); Mean Corpuscular HGB Conc 34.5 g/dl (31.0-36.0); Mean Corpuscular Hemoglobin 32.4 pg (27.0-33.0); Mean Platelet Volume 10.8 fL (9.4-12.4); Monocytes Absolute Auto 0.6 X10*3/uL (0.1-1.2); Monocytes Percent Auto 8.9 % (2-11); Neutrophils Absolute Auto 3.3 x10*3/uL (2.0-8.3); Neutrophils Percent Auto 49.1 % (45-73); Platelet Count 254 X10*3/uL (160-400); Red Cell Distribution Width 12.5 % (11.0-16.0); White Blood Count 6.8 X10*3/uL (4.8-10.8)
[2023-12-01 08:05] LABS: Estimated Average Glucose 117 mg/dL; Hemoglobin A1c % 5.7 % (<6.0)
[2023-12-01 08:18] LABS: Alanine Aminotransferase 21 U/L (0-40); Albumin Level 4.7 g/dL (3.5-5.0); Alkaline Phosphatase 68 U/L (39-117); Anion Gap 13 (12-20); Aspartate Amino Transferase 23 U/L (5-37); Bilirubin Total 0.7 mg/dL (0.0-1.0); Blood Urea Nitrogen 15 mg/dL (9-16); Calcium 10.1 mg/dL (8.4-10.2); Carbon Dioxide 27 mmol/L (22-29); Chloride 105 mmol/L (96-108); Estimated Glomerular Filt Rate > 60; Glucose Random 114 mg/dL (60-115); Potassium 3.9 mmol/L (3.3-5.1); Sodium 141 mmol/L (135-145); Total Protein 7.4 g/dL (6.5-8.0)
[2023-12-01 08:39] LABS: Creatinine Urine 177.73 mg/dL
[2023-12-01 09:05] LABS: Folate 16.1 ng/mL (> or = 4.0); Vitamin B12 498 pg/mL (200-900)
== END 2023-12-01 06:53 | disposition home or self-care (01) ==
LOC: HO.LAB 06:52
PROVIDERS: PCP Internal Medicine; Visit Provider Internal Medicine
DX: E11.65 Type 2 diabetes mellitus with hyperglycemia (principal)
CPT/HCPCS: 36415; 80053; 82043; 82570; 82607; 82746; 83036; 85025

== ENCOUNTER 2023-12-19 08:31 | Outpatient (AMB) | payer MEDICARE, SELFPAY ==
[2023-12-19 08:37] VITALS: BP 130/72; PULSE 63; O2SAT 94; BMI 28.0
--- NOTE | 2023-12-19 08:37 | A.OFFPC_ITS ---
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 Patient on narcotic pain medication taken as needed comes in for follow-up. Last seen in 08/04/2023. Patient's colonoscopy is up-to-date 2021. Patient has been doing fine otherwise no nausea no vomiting no chest pains no shortness a breath no bowel bladder symptoms. [facility] Medical History (Updated 07/31/23 @ 09:16 by Rocky Nelson MD) Impaired fasting blood sugar Peptic ulcer disease Anxiety and depression Erectile dysfunction GERD (gastroesophageal reflux disease) DDD (degenerative disc disease), lumbar Hypercholesteremia Hypertension Surgical History Hx of colonoscopy History of inguinal hernia repair Hx of umbilical hernia repair Family History Father Esophageal cancer Hypertension Mother Hypertension Sister No problems noted. Social History Housing: House Alcohol intake: never Patient Tobacco Use Status: Never used Tobacco Tobacco use type: Cigarette e-Cigarette/Vaping Use: Never Used Second Hand Smoke Exposure: No service: No Current occupational status: retired Cognitive needs: No Hearing needs: No Vision needs: Yes Questionnaire PHQ-9 Over the last 2 weeks, how often have you been bothered by any of the following problems? 1. Little interest or pleasure in doing things: not at all 2. Feeling down, depressed, or hopeless: not at all 3. Trouble falling or staying asleep, or sleeping too much: not at all 4. Feeling tired or having little energy: not at all 5. Poor appetite or overeating: not at all 6. Feeling bad about yourself - or that you are a failure or have let yourself or your family down: not at all 7. Trouble concentrating on things, such as reading the newspaper or watching television: not at all 8. Moving or speaking so slowly that other people could have noticed. Or the opposite - being so fidgety or restless that you have been moving around a lot more than usual: not at all 9. Thoughts that you would be better off or of hurting yourself in some way: not at all Total score: 0 Source: Developed by Drs. Farhan Fuentes, Tavia Meléndez, Surendra Dumont and colleagues, with an educational merle from [employer]. Thrive Questionnaire Date Thrive assessed: 07/31/23 Are you currently unemployed and looking for a job?: No AUDIT C Alcohol Use Questionnaire (AUDIT-C) 1. How often do you have a drink containing alcohol?: Never Total Score: 0 DIEGO-7 AMB Questionnaire DIEGO-7 Date DIEGO - 7 assessed: 07/31/23 Source: Developed by Drs. Farhan Fuentes, Tavia Meléndez, Surendra Dumont and colleagues, with an educational merle from [employer]. Physical exam (Primary Care) Vital Signs: Last Vital Signs Pulse 63 12/19/23 08:37 BP 130/72 12/19/23 08:37 Pulse Ox 94 12/19/23 08:37 Oxygen Delivery Method Room Air 12/19/23 08:37 BMI result Body Mass Index 28.0 Tobacco/Smoking Status: Tobacco use Status Tobacco use date assessed 04/24/23 12/19/23 08:41 Patient Tobacco Use Status Never used Tobacco 12/19/23 08:41 Tobacco use type Cigarette 12/19/23 08:41 e-Cigarette/Vaping Use Never Used 12/19/23 08:41 PHQ-9: PHQ-9 Score PHQ-9: Total score 0 12/19/23 08:41 Thrive Assessment: Date of Thrive Assessment Date Thrive assessed 07/31/23 12/19/23 08:41 Const General: alert; No acute distress Eyes Conjunctivae: conjunctivae normal Resp Auscultation: clear to auscultation bilaterally Cardio Rate: regular rate Rhythm: regular rhythm GI Inspection: Yes normal to inspection Extrem General: Yes normal to inspection and No edema Coding Level of Care Code Est Pt Level 4 (66674) Diagnoses Type 2 diabetes mellitus with hyperglycemia E11.65 Overweight (BMI 25.0-29.9) E66.3 Essential hypertension I10 Hypertension type: essential hypertension Hypercholesteremia E78.00 DDD (degenerative disc disease), lumbar M51.36 Assessment & Plan Assessment & Plan (1) Type 2 diabetes mellitus with hyperglycemia: [facility]: [facility] [place] Code(s): E11.65 - Type 2 diabetes mellitus with hyperglycemia Category: Medical Plan: Decrease the amount of carbohydrate intake, pasta, bread, rice and potatoes are all sugar and that is aside from all the sweet stuff, remember that fruits are good but they are Sweet also. Hemoglobin A1c goal of less than 7.0 patient is diet controlled. (2) Overweight (BMI 25.0-29.9): Code(s): E66.3 - Overweight Category: Medical Plan: Diet and exercise (3) Hypertension: Code(s): I10 - Essential (primary) hypertension Category: Medical Qualifiers: Hypertension type: essential hypertension Qualified Code(s): I10 - Essential (primary) hypertension Plan: Continue with blood pressure medication. Decrease salt intake and exercise takes benazepril 40 mg once a day (4) Hypercholesteremia: Code(s): E78.00 - Pure hypercholesterolemia, unspecified Category: Medical Plan: Avoid fried foods, chicken skin, eggs, butter margarine, pastries and meat. Be it pork or beef they have a lot of cholesterol goal of LDL is below 100 08/04/2023 last blood work elevated. Advised to retest in 3 months (5) DDD (degenerative disc disease), lumbar: Comment: MRI 2008 with disc herniation with compression L5 Code(s): M51.36 - Other intervertebral disc degeneration, lumbar region Category: Medical Plan: Continue to be active and try losing the weight. Orders: Orders Lipid Panel 3 Months E78.00 - Pure hypercholesterolemia, unspecified Comprehensive Met. Panel 3 Months E78.00 - Pure hypercholesterolemia, unspecified Hemoglobin A1c 3 Months E78.00 - Pure hypercholesterolemia, unspecified
== END 2023-12-19 09:01 | disposition home or self-care (01) ==
PROVIDERS: PCP Internal Medicine; Visit Provider Internal Medicine
DX: E11.65 Type 2 diabetes mellitus with hyperglycemia (principal); E66.3 Overweight; I10 Essential (primary) hypertension; M51.369 Other intervertebral disc degeneration, lumbar region without mention of lumbar back pain or lower extremity pain; E78.00 Pure hypercholesterolemia, unspecified

== ENCOUNTER → 2023-12-19 08:31 | Outpatient (BNVA) | payer MEDICARE, SELFPAY | PROVIDERS: PCP Internal Medicine; Visit Provider Internal Medicine | DX: E11.65 Type 2 diabetes mellitus with hyperglycemia (principal); E66.3 Overweight; I10 Essential (primary) hypertension; E78.00 Pure hypercholesterolemia, unspecified; M51.369 Other intervertebral disc degeneration, lumbar region without mention of lumbar back pain or lower extremity pain | CPT/HCPCS: 99212 ==

== ENCOUNTER 2024-04-01 07:18 | Outpatient (REF) | payer MEDICARE, SELFPAY ==
[2024-04-01 08:35] LABS: Estimated Average Glucose 120 mg/dL; Hemoglobin A1C 151.8817 umol/L; Hemoglobin A1c % 5.8 % (<6.0); Total Hemoglobin (HGBA1C) 3845.6779 umol/L
[2024-04-01 08:53] LABS: Alanine Aminotransferase 21 U/L (0-40); Albumin Level 4.6 g/dL (3.5-5.0); Alkaline Phosphatase 67 U/L (39-117); Anion Gap 13 (12-20); Aspartate Amino Transferase 31 U/L (5-37); Bilirubin Total 0.7 mg/dL (0.0-1.0); Blood Urea Nitrogen 19 mg/dL (9-16); Calcium 9.7 mg/dL (8.4-10.2); Carbon Dioxide 26 mmol/L (22-29); Chloride 105 mmol/L (96-108); Cholesterol 177 mg/dL (<200); Estimated Glomerular Filt Rate > 60; Glucose Random 118 mg/dL (60-115); HDL Cholesterol 45 mg/dL (>40); LDL Cholesterol Calculated 104 mg/dL (<100); Potassium 4.1 mmol/L (3.3-5.1); Sodium 140 mmol/L (135-145); Total Protein 7.6 g/dL (6.5-8.0); Triglycerides 143 mg/dL (<150)
== END 2024-04-01 07:19 | disposition home or self-care (01) ==
LOC: HO.LAB 07:18
PROVIDERS: PCP Internal Medicine; Visit Provider Internal Medicine
DX: E78.00 Pure hypercholesterolemia, unspecified (principal); Z13.1 Encounter for screening for diabetes mellitus
CPT/HCPCS: 36415; 80053; 80061; 83036

== ENCOUNTER → 2024-04-09 08:36 | Outpatient (BNVA) | payer MEDICARE, SELFPAY | PROVIDERS: PCP Internal Medicine; Visit Provider Internal Medicine | DX: E11.65 Type 2 diabetes mellitus with hyperglycemia (principal); E66.3 Overweight; K21.9 Gastro-esophageal reflux disease without esophagitis; I10 Essential (primary) hypertension; E78.00 Pure hypercholesterolemia, unspecified; M51.369 Other intervertebral disc degeneration, lumbar region without mention of lumbar back pain or lower extremity pain | CPT/HCPCS: 99212 ==

== ENCOUNTER 2024-07-08 06:34 | Outpatient (REF) | payer MEDICARE, SELFPAY ==
[2024-07-08 06:44] LABS: MANUAL DIFF FLAG NO
[2024-07-08 07:24] LABS: Estimated Average Glucose 120 mg/dL; Hemoglobin A1C 151.4302 umol/L; Hemoglobin A1c % 5.8 % (<6.0); Total Hemoglobin (HGBA1C) 3792.2585 umol/L
[2024-07-08 07:26] LABS: Basophils Percent Auto 0.6 % (0-2); Eosinophils Absolute Auto 0.1 X10*3/uL (0.0-0.4); Eosinophils Percent Auto 2.2 % (0-4); Hematocrit 40.5 % (42.0-52.0); Hemoglobin 14.2 g/dl (14.0-18.0); Imm Gran Abs Auto 0.03 X10*3/uL (0.00-0.03); Imm Gran Pct Auto 0.5 % (0.0-0.4); Lymphocytes Absolute Auto 2.4 X10*3/uL (1.2-4.9); Lymphocytes Percent Auto 36.6 % (20-40); Mean Corpuscular HGB Conc 35.1 g/dl (31.0-36.0); Mean Corpuscular Hemoglobin 32.6 pg (27.0-33.0); Mean Corpuscular Volume 92.9 fL (80.0-98.0); Mean Platelet Volume 10.4 fL (9.4-12.4); Monocytes Absolute Auto 0.6 X10*3/uL (0.1-1.2); Monocytes Percent Auto 8.7 % (2-11); Neutrophils Absolute Auto 3.3 x10*3/uL (2.0-8.3); Neutrophils Percent Auto 51.4 % (45-73); Platelet Count 249 X10*3/uL (160-400); Red Blood Count 4.36 X10*6/uL (4.60-5.80); Red Cell Distribution Width 12.5 % (11.0-16.0); White Blood Count 6.4 X10*3/uL (4.8-10.8)
[2024-07-08 07:49] LABS: Alanine Aminotransferase 34 U/L (0-40); Albumin Level 4.4 g/dL (3.5-5.0); Alkaline Phosphatase 60 U/L (39-117); Anion Gap 12 (12-20); Aspartate Amino Transferase 36 U/L (5-37); Bilirubin Total 0.7 mg/dL (0.0-1.0); Blood Urea Nitrogen 18 mg/dL (9-16); Calcium 9.5 mg/dL (8.4-10.2); Carbon Dioxide 25 mmol/L (22-29); Chloride 106 mmol/L (96-108); Cholesterol 167 mg/dL (<200); Estimated Glomerular Filt Rate > 60; Glucose Random 139 mg/dL (60-115); HDL Cholesterol 46 mg/dL (>40); LDL Cholesterol Calculated 96 mg/dL (<100); Sodium 139 mmol/L (135-145); Triglycerides 128 mg/dL (<150)
[2024-07-08 08:09] LABS: Free T4 (Free Thyroxine) 0.92 ng/dL (0.71-1.85); Thyroid Stimulating Hormone 2.58 uIU/mL (0.32-4.0)
== END 2024-07-08 06:35 | disposition home or self-care (01) ==
LOC: HO.LAB 06:34
PROVIDERS: PCP Internal Medicine; Visit Provider Internal Medicine
DX: E78.00 Pure hypercholesterolemia, unspecified (principal); Z13.1 Encounter for screening for diabetes mellitus
CPT/HCPCS: 36415; 80053; 80061; 83036; 84439; 84443; 85025

== ENCOUNTER 2024-07-15 08:45 | Outpatient (AMB) | payer MEDICARE, SELFPAY ==
[2024-07-15 08:48] VITALS: BP 148/70; PULSE 103; TEMP 38.7; O2SAT 95; BMI 28.0
--- NOTE | 2024-07-15 08:48 | A.OFFPC_ITS ---
Vital Signs 3 07/15/24 08:48 Height 5 ft 8 in Weight 184 lb BMI 28.0 BP 148/70 H Blood Pressure Location Lt brachial Position Sitting Pulse 103 H Pulse Source Pulse Oximeter Temp 101.6 F H Temp Source Oral Pulse Oximetry (%) 95 Oxygen Delivery Method Room Air Intake Visit Reasons: DM, Chol Intake Note: Fever started since friday, no energy, breaks out in sweat. He also was recently bit by a tick. Working in yard may have been bitten by spider has rash on left arm. Allergies No Known Allergies [No Known Allergies*] Allergy (Verified 07/15/24 08:49) Tobacco use date assessed: 04/09/24 Fall risk assessment: No Falls in past year Last assessed Fall Risk: 07/15/24 Dental Screening Dental Screen Date: 04/09/24 HPI DM, Chol 2 HPI0 Details fever PFSH Medical History (Updated 07/15/24 @ 09:12 by Rocky Nelson MD) Impaired fasting blood sugar Peptic ulcer disease Anxiety and depression Erectile dysfunction GERD (gastroesophageal reflux disease) DDD (degenerative disc disease), lumbar Hypercholesteremia Hypertension Surgical History Hx of colonoscopy History of inguinal hernia repair Hx of umbilical hernia repair Family History Father Esophageal cancer Hypertension Mother Hypertension Sister No problems noted. Social History Housing: House Alcohol intake: never Patient Tobacco Use Status: Never used Tobacco Tobacco use type: Cigarette e-Cigarette/Vaping Use: Never Used Second Hand Smoke Exposure: No service: No Current occupational status: retired Cognitive needs: No Hearing needs: No Vision needs: Yes (Glasses) Questionnaire PHQ-9 Over the last 2 weeks, how often have you been bothered by any of the following problems? 1. Little interest or pleasure in doing things: not at all 2. Feeling down, depressed, or hopeless: not at all 3. Trouble falling or staying asleep, or sleeping too much: not at all 4. Feeling tired or having little energy: nearly every day 5. Poor appetite or overeating: more than half the days 6. Feeling bad about yourself - or that you are a failure or have let yourself or your family down: not at all 7. Trouble concentrating on things, such as reading the newspaper or watching television: not at all 8. Moving or speaking so slowly that other people could have noticed. Or the opposite - being so fidgety or restless that you have been moving around a lot more than usual: more than half the days 9. Thoughts that you would be better off or of hurting yourself in some way: not at all Total score: 7 Depression Screening Interpretation: Positive Depression Screening Done: Yes 09596 - PHQ-9 Billing: Yes Source: Developed by Drs. Farhan Fuentes, Tvaia Meléndez, Surendra Dumont and colleagues, with an educational merle from [employer]. Thrive Questionnaire Date Thrive assessed: 07/15/24 I am a: Patient What is your living situation today?: I have a steady place to live Within the past 12 months, did the food you bought not last and you didn't have the money to get more?: Never true Within the past 12 months, did you worry whether your food would run out before you got money to buy more?: Never true Do you have trouble paying for medicines?: No Do you have trouble getting transportation to medical appointments?: No Do you have trouble paying your heating and electricity bill?: No Do you have trouble taking care of your child, family member or friend?: No Do you have trouble with day-to-day activities such as bathing, preparing meals, shopping, managing finances, etc.?: No Are you currently unemployed and looking for a job?: Yes Are you interested in more education?: No Please select the resources that you would like help with: None Currently or been in a relationship where the following occur: No concerns reported THRIVE Score: 0 AUDIT C Alcohol Use Questionnaire (AUDIT-C) 1. How often do you have a drink containing alcohol?: Never Total Score: 0 DIEGO-7 AMB Questionnaire DIEGO-7 Date DIEGO - 7 assessed: 07/15/24 Feeling nervous, anxious, or on edge: 0 = Not at all Not being able to stop or control worryin = Not at all Worrying too much about different things: 0 = Not at all Trouble relaxin = Not at all Being so restless that it is hard to sit still: 0 = Not at all Becoming easily annoyed or irritable: 0 = Not at all Feeling afraid as if something awful might happen: 0 = Not at all Total DIEGO-7 score (0-4 normal; 5-9 mild; 10-14 moderate; 15-21 severe): 0 Source: Developed by Drs. Farhan Fuentes, Tavia Meléndez, Surendra Dumont and colleagues, with an educational merle from [employer]. DIEGO-7 Assessment Billing DIEGO-7 Assessment Tool: DIEGO-7 Assessment 36967 Physical exam (Primary Care) Vital Signs: Last Vital Signs Temp 101.6 F H 07/15/24 08:48 Pulse 103 H 07/15/24 08:48 BP 148/70 H 07/15/24 08:48 Pulse Ox 95 07/15/24 08:48 Oxygen Delivery Method Room Air 07/15/24 08:48 BMI result Body Mass Index 28.0 Tobacco/Smoking Status: Tobacco use Status Tobacco use date assessed 04/09/24 07/15/24 08:56 Patient Tobacco Use Status Never used Tobacco 07/15/24 08:56 Tobacco use type Cigarette 07/15/24 08:56 e-Cigarette/Vaping Use Never Used 07/15/24 08:56 PHQ-9: PHQ-9 Score PHQ-9: Total score 7 07/15/24 08:56 Depression Screening Interpretation: Positive Thrive Assessment: Date of Thrive Assessment Date Thrive assessed 07/15/24 07/15/24 08:56 Currently or been in a relationship where the following occur: No concerns reported Const General: alert; No acute distress Eyes Conjunctivae: conjunctivae normal Resp Auscultation: clear to auscultation bilaterally Cardio Rate: regular rate Rhythm: regular rhythm GI Inspection: Yes normal to inspection Extrem General: Yes normal to inspection and No edema Elbow/forearm/wrist images: 2 1. 5 7 mm erythematous papular rash on the arm times 4 low scaliness 2. Upper/lower leg/hip images: 2 1. 2 times 5 mm papular rash mildly erythematous 2. Results AMB Urinalysis, Automated 2 UA Leukoctes 0 Ameena/uL Last Edit by Hoda Durant CMA on 07/15/24 09:17 UA Nitrite Negative Last Edit by Hoda Durant CMA on 07/15/24 09:17 UA Urobilinogen 0.2 mg/dL Last Edit by Hoda Durant, [facility] on 07/15/24 09:17 UA Protein 100 mg/dL Last Edit by Hoda Durant, [facility] on 07/15/24 09:17 UA pH 6.0 Last Edit by Hoda Durant, [facility] on 07/15/24 09:17 UA Blood 80 Devin/uL Last Edit by Hoda Durant, [facility] on 07/15/24 09:17 UA Specific [place] 1.030 Last Edit by Hoda Durant, [facility] on 07/15/24 09:17 UA Ketone Positive Last Edit by Hoda Durant, [facility] on 07/15/24 09:17 UA Bilirubin 0 mg/dL Last Edit by Hoda Durant, [facility] on 07/15/24 09:17 UA Glucose 0 mg/dL Last Edit by Hoda Durant, [facility] on 07/15/24 09:17 Coding Level of Care Code Est Pt Level 4 (96960) Complex EM visit Add On G2211 Diagnoses Type 2 diabetes mellitus with hyperglycemia E11.65 Overweight (BMI 25.0-29.9) E66.3 Essential hypertension I10 Hypertension type: essential hypertension Hypercholesteremia E78.00 DDD (degenerative disc disease), lumbar M51.36 Gastroesophageal reflux disease without esophagitis K21.9 Esophagitis presence: without esophagitis Fever R50.9 Urinary incontinence R32 Tick bite W57.XXXA Hematuria R31.9 Additional Codes DIEGO-7 Assessment Billing - DIEGO-7 Assessment Tool: DIEGO-7 Assessment 10825 ([id number]) PHQ-9 - 78775 - PHQ-9 Billing: Yes ([id number]) Assessment & Plan Assessment & Plan (1) Type 2 diabetes mellitus with hyperglycemia: [facility]): E11.65 - Type 2 diabetes mellitus with hyperglycemia Category: Medical Plan: Decrease the amount of carbohydrate intake, pasta, bread, rice and potatoes are all sugar and that is aside from all the sweet stuff, remember that fruits are good but they are Sweet also. Hemoglobin A1c goal of less than 7.0 patient is on diet control (2) Overweight (BMI 25.0-29.9): Code(s): E66.3 - Overweight Category: Medical Plan: Diet and exercise (3) Hypertension: Code(s): I10 - Essential (primary) hypertension Category: Medical Qualifiers: Hypertension type: essential hypertension Qualified Code(s): I10 - Essential (primary) hypertension Plan: Continue with blood pressure medication. Decrease salt intake and exercise on benazepril 40 mg once a day (4) Hypercholesteremia: Code(s): E78.00 - Pure hypercholesterolemia, unspecified Category: Medical Plan: Avoid fried foods, chicken skin, eggs, butter margarine, pastries and meat. Be it pork or beef they have a lot of cholesterol LDL of less than 100 June 2024 last blood work on rosuvastatin 5 mg once a day (5) DDD (degenerative disc disease), lumbar: Comment: MRI 2008 with disc herniation with compression L5 Code(s): M51.36 - Other intervertebral disc degeneration, lumbar region Category: Medical Plan: Narcotic pain meds: Is being prescribed with the understanding that these medications are potentially addictive and should be used only when absolutely necessary and must always be secured. Any remaining pills should be safely disposed off appropriately. Patient is advised that narcotics can impaired judgment and one should not drive or operate heavy machinery while taking these medications. Never share these medications with anybody and do not leave them unattended. They will not be replaced under any circumstances. (6) GERD (gastroesophageal reflux disease): Code(s): K21.9 - Gastro-esophageal reflux disease without esophagitis Category: Medical Qualifiers: Esophagitis presence: without esophagitis Qualified Code(s): K21.9 - Gastro-esophageal reflux disease without esophagitis Plan: Avoid the foods that causes that usually spicy foods, tomato products, juices, coffee, soda and foods that your sensitive to. After eating do not lie down, allow 3-4 hours before in lie down. And keep the head of bed above 30 degrees to avoid the acid from going up. On pantoprazole (7) Fever: Code(s): R50.9 - Fever, unspecified Category: Medical (8) Urinary incontinence: Code(s): R32 - Unspecified urinary incontinence Category: Medical (9) Tick bite: Code(s): W57.XXXA - Bitten or stung by nonvenomous insect and other nonvenomous arthropods, initial encounter Category: Medical (10) Hematuria: Code(s): R31.9 - Hematuria, unspecified Category: Medical Plan History of Present Illness The patient is a 74-year-old male presenting with fever and rash. He has a medical history significant for essential hypertension, treated hypercholesterolemia, gastroesophageal reflux disease, diabetes mellitus with hemoglobin A1c of 5.8%, and lumbar degenerative disc disease. The recent onset of fever started on Friday and has spiked up to 104?F. There is also a rash present on the left arm that could be secondary to a bug bite incurred during yard work. No respiratory or gastrointestinal symptoms, such as cough or diarrhea, were reported. The patient experienced significant fatigue and required assistance with ambulation at the height of his fever on Friday night. There was a previous tick bite, but without any characteristic rash, and Lyme disease is being considered. His blood work from June showed normal results for complete blood count, electrolyte levels, renal and liver functions, with fasting blood glucose of 139 mg/dL. Currently, the urine results show trace amounts of blood but no infection; he had difficulty with urination during the high fever night. Health Maintenance - Routine blood work in June: fasting blood glucose of 139 mg/dL, hemoglobin A1c of 5.8%, and LDL cholesterol of 96 mg/dL. - Management plan for diabetes includes dietary control and target hemoglobin A1c less than 6.5%. - Management plan for hypertension includes benazepril 40 mg once daily. - Management plan for hypercholesterolemia includes rosuvastatin 5 mg once daily with LDL goal <100 mg/dL. Social History - Lives at home with his . - Engaged in yard work and experienced a possible bug bite during this activity. Review of Systems - General: Reports fever and diaphoresis. - Skin: Reports rash on the left arm, unsure if related to bug bite. - Respiratory: Denies cough or shortness of breath. - Cardiovascular: No specific symptoms reported. - Gastrointestinal: Denies abdominal pain, diarrhea, or vomiting. - Genitourinary: Reports an episode of decreased control over urination during a high fever night. - Neurological: Reports fatigue and weakness. - Musculoskeletal: Denies any new or recent pains aside from chronic back pain. - Ear, Nose, and Throat: Denies sore throat, ear pain, or congestion. Physical Exam - General- Alert, in no acute distress, compliant with examination. - Head, Eyes, Ears, Nose, Throat (HEENT)- Throat examination unremarkable with no pain reported on maneuvering. - Lungs- Clear to auscultation bilaterally with normal breath sounds. - Cardiovascular- Heart rate regular, no murmurs, gallops, or rubs detected. - Skin- Rash noted on left arm, no bull's eye appearance. - Abdominal- No tenderness or organomegaly. - Neurological- No notable neurological deficits, normo-voluntary movement noted. Results - Labs: Blood work from June indicates normal blood count, electrolytes, renal, and liver function. - Tests and Diagnostics: Urinalysis showed trace presence of blood without infection signs. Plan The patient demonstrates symptoms suggestive of tick-borne illness, therefore, empiric doxycycline therapy was initiated. Diagnostic evaluations include Lyme blood test and an ultrasound to investigate the presence of potential kidney issues given the urinalysis findings. The patient is advised on managing fever with regular hydration and Tylenol. Continual monitoring of symptoms and follow- up were stressed, ensuring patient awareness of potential worsening signs requiring medical intervention. Patient was informed and verbally consented to the use of an ambient scribe for clinic note documentation during this visit. Discussion Notes I discussed with the patient the likely possibility of Lyme disease given his symptoms of rash and recent tick exposure, although the classic bull's eye rash is absent. I initiated treatment with doxycycline, outlining potential risks such as photosensitivity. I advised the patient on the importance of fever management with Tylenol and hydration, emphasizing the need for rest. I explained the rationale behind ordering an ultrasound and Lyme blood test, ensuring comprehensive evaluation. Follow-up instructions included monitoring for new or worsening symptoms and were similarly reiterated. The patient was informed about the importance of follow-up regarding bloodwork and potential rash developments. Patient Instructions - Begin taking doxycycline 100 mg twice daily for 10 days. - Take Tylenol to manage fever as needed. - Drink plenty of water to stay hydrated. - Rest and avoid excessive sun exposure while on doxycycline. - Monitor for any new symptoms like cough or abdominal pain, and seek medical care if these occur. - Await phone call to schedule ultrasound. - Follow up after completing antibiotics or sooner if condition does not improve. Orders: Orders 2 Lyme IgG/IgM w/reflex to WB Today W57.XXXA - Bitten or stung by nonvenomous insect and other nonvenomous arthropods, initial encounter US bladder Today R31.9 - Hematuria, unspecified US renal BI Today R31.9 - Hematuria, unspecified Urine Cytology Today R31.9 - Hematuria, unspecified AMB Urinalysis Automated Today R32 - Unspecified urinary incontinence, Z13.9 - Encounter for screening, unspecified Medications: New 2 doxycycline hyclate 100 mg PO BID 20 caps 0RF W57.XXXA - Bitten or stung by nonvenomous insect and other nonvenomous arthropods, initial encounter
== END 2024-07-15 11:09 | disposition home or self-care (01) ==
LOC: HO.HMCH 08:46
PROVIDERS: PCP Internal Medicine; Visit Provider Internal Medicine
DX: E11.65 Type 2 diabetes mellitus with hyperglycemia (principal); E66.3 Overweight; I10 Essential (primary) hypertension; E78.00 Pure hypercholesterolemia, unspecified; M51.369 Other intervertebral disc degeneration, lumbar region without mention of lumbar back pain or lower extremity pain; K21.9 Gastro-esophageal reflux disease without esophagitis; R50.9 Fever, unspecified; R32 Unspecified urinary incontinence; W57.XXXA Bitten or stung by nonvenomous insect and other nonvenomous arthropods, initial encounter; R31.9 Hematuria, unspecified; Z13.9 Encounter for screening, unspecified

== ENCOUNTER → 2024-07-15 08:45 | Outpatient (BNVA) | payer MEDICARE, SELFPAY | PROVIDERS: PCP Internal Medicine; Visit Provider Internal Medicine | DX: E78.00 Pure hypercholesterolemia, unspecified (principal); E11.65 Type 2 diabetes mellitus with hyperglycemia; I10 Essential (primary) hypertension; M51.369 Other intervertebral disc degeneration, lumbar region without mention of lumbar back pain or lower extremity pain; K21.9 Gastro-esophageal reflux disease without esophagitis; R50.9 Fever, unspecified; R32 Unspecified urinary incontinence; R31.0 Gross hematuria; E66.3 Overweight; T14.8XXA Other injury of unspecified body region, initial encounter; W57.XXXA Bitten or stung by nonvenomous insect and other nonvenomous arthropods, initial encounter; Y93.9 Activity, unspecified; Y92.9 Unspecified place or not applicable; Y99.9 Unspecified external cause status; Z68.28 Body mass index [BMI] 28.0-28.9, adult | CPT/HCPCS: 81003; 96127; 99212 ==

== ENCOUNTER 2024-07-17 08:24 | Outpatient (REF) | payer MEDICARE, SELFPAY ==
[2024-07-17 11:08] LABS: Creatinine Urine 318.39 mg/dL
[2024-07-19 08:26] LABS: Urine Cytology See Pathology rpt
[2024-07-20 04:29] LABS: Lyme Abs Screen <0.90 index
== END 2024-07-17 08:25 | disposition home or self-care (01) ==
LOC: HO.LAB 08:24
PROVIDERS: PCP Internal Medicine; Visit Provider Internal Medicine
DX: E11.65 Type 2 diabetes mellitus with hyperglycemia (principal); R31.9 Hematuria, unspecified; T14.8XXA Other injury of unspecified body region, initial encounter; W57.XXXA Bitten or stung by nonvenomous insect and other nonvenomous arthropods, initial encounter
CPT/HCPCS: 36415; 82570; 86617; 86618; 88112

== ENCOUNTER 2024-08-02 12:18 | Outpatient (REF) | payer MEDICARE, SELFPAY ==
--- NOTE | ~2024-08-02 | US_ITS ---
EXAMINATION: US RETROPERITONEUM HISTORY: R31.9 - Hematuria, unspecified TECHNIQUE: Real-time grayscale ultrasound imaging of the kidneys was performed and images were reviewed. COMPARISON: There are no prior studies for comparison. FINDINGS: Right kidney: The right kidney measures 10.7 x 5.7 x 5.2 cm. Renal parenchymal echotexture and thickness are normal. There are no masses. There is a nonobstructing 4 mm calculus at the lower pole. There is no hydronephrosis. Left Kidney: The left kidney measures 10.4 x 5.4 x 6.3 cm. Renal parenchymal echotexture and thickness are normal. There are no masses. There is no hydronephrosis or renal calculi. The urinary bladder is unremarkable. Bilateral ureteral jets are identified. Before voiding, the urinary bladder measured 12.6 x 8.5 x 8.4 cm, for an estimated volume of 474 mL. After voiding, the urinary bladder measured 9.8 x 6.9 x 7.3 cm, for an estimated volume of 257 mL. The prostate measures approximately 5.3 x 4.3 x 4.6 cm. US/US retroperitoneal comp IMPRESSION: 1. 4 mm nonobstructing right renal calculus. 2. Post void bladder residual of 257 mL. Electronically signed by: Farhan Giron MD 08/02/2024 01:01 PM EDT
== END 2024-08-02 12:19 | disposition home or self-care (01) ==
LOC: HO.US 12:18
PROVIDERS: PCP Internal Medicine; Visit Provider Internal Medicine
DX: R31.9 Hematuria, unspecified (principal)
CPT/HCPCS: 76770

== ENCOUNTER → 2024-08-02 12:20 | Outpatient (BNV) | payer MEDICARE, SELFPAY | PROVIDERS: PCP Internal Medicine; Visit Provider Radiology Diagnostic Radiology | DX: N20.0 Calculus of kidney (principal) | CPT/HCPCS: 76770 ==

== ENCOUNTER 2024-10-07 10:42 | Outpatient (AMB) | payer MEDICARE, SELFPAY ==
--- NOTE | 2024-10-07 10:47 | MHC.OFFVIS ---
Intake Visit Reasons: microscopic hematuria Intake Note: New Patient is present for micro hematuria Urology Rx:tamsulosin PVR:26 mls Blood Thinners:asprin Imaging completed: none Rebar Worker Required: No Accompanied by: Self / Same As Patient Allergies No Known Allergies (No Known Allergies*) Allergy (Verified 10/07/24 10:48) HPI Comments Details: Douglas is a 74-year-old male who is here as a new patient for hematuria. I have reviewed his chart he had a renal ultrasound on 08/02/2024 noting a 34 mm right kidney stone. History of Present Illness - The patient is a 74-year-old male presenting for evaluation of nephrolithiasis and hematuria. - Nephrolithiasis: A renal ultrasound on 08/02/24 revealed a 34 mm stone in the right kidney. - The patient experienced back pain three months ago, leading to the discovery of the kidney stone. - He was prescribed tamsulosin, which has improved his urinary stream. - Hematuria: There is no current pain or visible blood in the urine, but a history of hematuria is noted. - History of smoking: The patient quit smoking 35 years ago. Results - Renal ultrasound (08/02/24): 34 mm stone in the right kidney. Plan - Follow-up imaging is planned to assess the status of the kidney stone. - A cystoscopy is recommended to rule out any bladder abnormalities contributing to hematuria. - A CAT scan of the abdomen with contrast is ordered to evaluate the kidneys further. - The patient will receive an antibiotic prior to the cystoscopy to reduce the risk of infection. [facility] Medical History (Updated 10/07/24 @ 11:43 by Ludmila Wood MD) Impaired fasting blood sugar Peptic ulcer disease Anxiety and depression Erectile dysfunction GERD (gastroesophageal reflux disease) DDD (degenerative disc disease), lumbar Hypercholesteremia Hypertension Surgical History Hx of colonoscopy History of inguinal hernia repair Hx of umbilical hernia repair Family History Father Esophageal cancer Hypertension Mother Hypertension Sister No problems noted. Social History Housing: House Alcohol intake: never Patient Tobacco Use Status: Never used Tobacco Tobacco use type: Cigarette e-Cigarette/Vaping Use: Never Used Second Hand Smoke Exposure: No service: No Current occupational status: retired Cognitive needs: No Hearing needs: No Vision needs: Yes (Glasses) Office Procedures Post Void Residual Post Residual Void Post Void Residual (PVR): 26 25616-Pksw Void Residual by ultrasound Results AMB Urinalysis, Automated UA Leukoctes 0 Ameena/uL Last Edit by [facility] on 10/07/24 17:02 UA Nitrite Last Edit by [facility] on 10/07/24 17:02 UA Urobilinogen 0.2 mg/dL Last Edit by [facility] on 10/07/24 17:02 UA Protein 0 mg/dL Last Edit by [facility] on 10/07/24 17:02 UA pH 6.0 Last Edit by [facility] on 10/07/24 17:02 UA Blood 0 Devin/uL Last Edit by [facility] on 10/07/24 17:02 UA Specific [place] 1.010 Last Edit by [facility] on 10/07/24 17:02 UA Ketone Last Edit by [facility] on 10/07/24 17:02 UA Bilirubin 0 mg/dL Last Edit by [facility] on 10/07/24 17:02 UA Glucose 0 mg/dL Last Edit by [facility] on 10/07/24 17:02 Results Reviewed Results Reviewed: Date of Service: 08/02/24 EXAMINATION: US RETROPERITONEUM HISTORY: R31.9 - Hematuria, unspecified TECHNIQUE: Real-time grayscale ultrasound imaging of the kidneys was performed and images were reviewed. COMPARISON: There are no prior studies for comparison. FINDINGS: Right kidney: The right kidney measures 10.7 x 5.7 x 5.2 cm. Renal parenchymal echotexture and thickness are normal. There are no masses. There is a nonobstructing 4 mm calculus at the lower pole. There is no hydronephrosis. Left Kidney: The left kidney measures 10.4 x 5.4 x 6.3 cm. Renal parenchymal echotexture and thickness are normal. There are no masses. There is no hydronephrosis or renal calculi. The urinary bladder is unremarkable. Bilateral ureteral jets are identified. Before voiding, the urinary bladder measured 12.6 x 8.5 x 8.4 cm, for an estimated volume of 474 mL. After voiding, the urinary bladder measured 9.8 x 6.9 x 7.3 cm, for an estimated volume of 257 mL. The prostate measures approximately 5.3 x 4.3 x 4.6 cm. IMPRESSION: 1. 4 mm nonobstructing right renal calculus. 2. Post void bladder residual of 257 mL. Assessment & Plan Assessment & Plan (1) Gross hematuria: Code(s): R31.0 - Gross hematuria Category: Medical Orders: Orders CT urogram Today R31.0 - Gross hematuria AMB Urinalysis Automated Today Z13.9 - Encounter for screening, unspecified AMB Post Void Residual by ultrasound Today N40.0 - Benign prostatic hyperplasia without lower urinary tract symptoms Coding Diagnoses Gross hematuria R31.0 CPT Codes Post Residual Void - PVR CPT Code: 57585-Voor Void Residual by ultrasound ([id number])
--- OUTSIDE RECORDS SUMMARY | 2024-10-07 11:34 | XMS_ITS | Clinical Summary ---
Author Organization [facility] Address [address] [place], [place] [id number] Phone Care Team Providers Care Polishing Machine Operator Helper Name Role Phone Rocky Nelson MD Primary Care Provider [phone] Allergies No known active allergies Medications pravastatin (PRAVACHOL) 40 MG tablet Take 40 mg by mouth daily. Active benazepril (LOTENSIN) 20 MG tablet Take 20 mg by mouth daily. Active oxyCODONE-aceta minophen (PERCOCET) 5-325 mg per tablet Take 1 tablet by mouth every 4 (four) hours as needed for pain (specific location in comments). {PARTIAL FILL:46500} Active methylPREDNISol one (MEDROL DOSEPACK) 4 mg tablet follow package directions 21 tablet 1 Active Active Problems No known active problems Immunizations Immunization Administration Dates Next Due COVID-19 (Pre-01/06) Pfizer Vaccine, mRNA, PF Influenza High-Dose Trivalent Preservative Free IM 11/25/2018,11/13/2016 Influenza Quadrivalent Preservative Free IM 11/16 Influenza Quadrivalent w/ Preservative IM 2015 Influenza Trivalent Adjuvanted Preservative free IM 11/24/2017 Influenza Trivalent w/ Preservative IM 1 Pneumococcal conjugate PCV13 11/13/2016 Pneumococcal polysaccharide PPSV23 11/24/2017, Td (adult) 5 Lf Tetanus Toxoid, PF, Adsorbed 09/2018 Social History Tobacco Use Types Packs/Day Years Used Date Smoking Tobacco: Former Smokeless Tobacco: Never Comments:30 years ago Alcohol Use Standard Drinks/Week Comments Not Currently 0 (1 standard drink = 0.6 oz pure alcohol) quit 25-30 years ago pe patient Education Answer Date Recorded Are you interested in more education? Not on shima e 07/12/2022 Are you concerned about learning? Not on file 07/12/2022 No 07/12/2022 No 07/12/2022 Digital Access Answer Date Recorded No 08/10/2022 No 08/10/2022 No 08/10/2022 Reliable internet access at home? Not on file 08/10/2022 Device with a working camera? Not on file Sex and Gender Information Value Date Recorded Sex Assigned at Not on file Legal Sex Male 10:01 PM EDT Gender Identity Not on file Sexual Orientation Not on file Last Filed Vital Signs Vital Sign Reading Time Taken Comments Blood Pressure 148/80 08/08/2020 6:36 PM EDT Pulse 72 08/08/2020 6:36 PM EDT Temperature 36.4 C (97.5 F) 08/08/2020 6:36 PM EDT Respiratory Rate 16 08/08/2020 6:36 PM EDT Oxygen Saturation 96% 08/08/2020 6:36 PM EDT Inhaled Oxygen Concentration - - Weight 86.2 kg (190 lb) 08/08/2020 6:36 PM EDT Height 170.2 cm (5' 7 ) 08/08/2020 6:36 PM EDT Body Mass Index 29.76 08/08/2020 6:36 PM EDT Plan of Treatment Health Maintenance Due Date Last Done Comments CREATININE LEVEL 1950 LIPID PANEL 1950 POTASSIUM LEVEL 1950 DEPRESSION SCREENING 1962 SMOKING Hx and SMOKELESS TOBACCO SCREENING 05/16/1963 HEPATITIS C SCREENING 1968 COLOGUARD 05/16/1995 COLONOSCOPY 05/16/1995 COLORECTAL CANCER SCREENING 05/16/1995 FIT TEST 05/16/1995 FOBT 05/16/1995 SIGMOIDOSCOPY 05/16/1995 VIRTUAL COLONOSCOPY 05/16/1995 ZOSTER VACCINES (1 of 2) 2000 ABDOMINAL AORTIC ANEURYSM (AAA) SCREENING 05/16/2015 COVID-19 VACCINE (2023-2 5 season) 2023 05/31/2020, 05/09/2020 RSV VACCINE (1 - 1-dose 75+ series) 2025 Adult Td,Tdap Booster 03/23/2028 03/23/2018 PNEUMOCOCCAL VACCINES (50+ years) Completed 11/24/2017, 11/13/2016, 08/07/2015 HEPATITIS A VACCINES Aged Out No long er eligible based on patient's age to complete this topic HIB VACCINES Aged Out No longer eligi ble based on patient's age to complete this topic MENINGOCOCCAL VACCINES (ACWY) Aged Out No longer eligible based on patient's age to complete this topic MENINGOCOCCAL VACCINES (B) Aged Out N o longer eligible based on patient's age to complete this topic Medical Devices Not on file Insurance MEDICARE PPO BLUE REPLACEMENT MEDICARE PPO BLUE REPLACEMENT MEDICARE PPO BLUE REPLACEMENT MEDICARE PPO BLUE REPLACEMENT MEDICARE PPO BLUE REPLACEMENT [place] MED[place] P[place] BLUE REPLACEMENT Care Teams Polishing Machine Operator Helper Relationship Specialty Start Date End Date Rocky Nelson MD [address] [place] [address] Drive [address] [place] [id number] PCP - General Internal Medicine 07/15/17 Additional Source Comments The information contained in this document represents components of the legal health record. It is not the complete legal health record.[facility]
== END 2024-10-07 11:45 | disposition home or self-care (01) ==
LOC: HO.HUSH 10:43
PROVIDERS: PCP Internal Medicine; Visit Provider Urology
DX: Z13.9 Encounter for screening, unspecified (principal)

== ENCOUNTER → 2024-10-07 10:42 | Outpatient (BNVA) | payer MEDICARE, SELFPAY | PROVIDERS: PCP Internal Medicine; Visit Provider Urology | DX: R31.0 Gross hematuria (principal); N20.0 Calculus of kidney | CPT/HCPCS: 51798; 81003; 99202 ==

== ENCOUNTER 2024-11-26 07:59 | Outpatient (REF) | payer MEDICARE, SELFPAY ==
--- NOTE | ~2024-11-26 | CT_ITS ---
CLINICAL HISTORY: R31.0 - Gross hematuria CT abdomen and pelvis with and without contrast Comparison: US/WI/SR - US RETROPERITONEAL COMP - 08/02/24 12:33 EDT Findings: No consolidation or effusion. The gallbladder and solid organs are within normal limits. No renal stones. No bowel obstruction, pneumoperitoneum, or pneumatosis. Pelvic contents unremarkable. Normal appendix. No acute fracture. IMPRESSION: No acute findings. This document has been electronically signed by: Fernando Toney MD on 11/26/2024 15:04:44
--- OUTSIDE RECORDS SUMMARY | 2024-11-26 08:01 | XMS_ITS | Encounter Summary ---
Author Organization [facility] Address [address] [place] [phone] Phone Care Team Providers Care Short Order Cook Name Role Phone Rocky Nelson MD Primary Care Provider [phone] Reason for Referral * Physical Therapy (Routine) - Closed Specialty Diagnoses / Procedures Referred By Caleb pritchard Referred To Contact Physical Therapy Diagnoses Encounter for rehabilitation System, Provider Not In, PhD [id number] [place] [address] Phone: tel: Referral ID Status Reason Start Date Expiration Date Visits Re quested Visits Authorized [id number] Closed 07/17/2017 03/16/2018 99 99 Encounter Details Date Type Department Care Team (Latest Contact Info) Description 07/17/2017 Transcribe Orders [facility] [address] [place] [address] InstrumGilmar MD [address] [place] [address] [place] [address] Encounter for rehabilitation (Primary Dx) Social History Tobacco Use Types Packs/Day Years Used Date Smoking Tobacco: Never Assessed Sex and Gender Information Value Date Recorded Sex Assigned at Not on file Legal Sex Male 10:01 PM EDT Gender Identity Not on file Sexual Orientation Not on file documented as of this encounter Plan of Treatment Scheduled Referrals Name Type Priority Associated Diagnoses Orde r Schedule Ambulatory referral to [facility] Physical Therapy Outpatient Referral Routine Encounter for rehabilitation Ordered: 07/17/2017 documented as of this encounter Visit Diagnoses Diagnosis Encounter for rehabilitation- Primary documented in this encounter Care Teams Short Order Cook Relationship Specialty Start Date End Date Rocky Nelson MD [address] [place] [address] [address] [place] [address] PCP - General Internal Medicine 07/15/17 documented as of this encounter Additional Source Comments The information contained in this document represents components of the legal health record. It is not the complete legal health record.[facility]
--- OUTSIDE RECORDS SUMMARY | 2024-11-26 08:01 | XMS_ITS | Clinical Summary ---
Author Organization [facility] Address [address] [place], [place] [id number] Phone Care Team Providers Care Costumer Assistant Name Role Phone Rocky Nelson MD Primary Care Provider [phone] Allergies No known active allergies Medications pravastatin (PRAVACHOL) 40 MG tablet Take 40 mg by mouth daily. Active benazepril (LOTENSIN) 20 MG tablet Take 20 mg by mouth daily. Active oxyCODONE-aceta minophen (PERCOCET) 5-325 mg per tablet Take 1 tablet by mouth every 4 (four) hours as needed for pain (specific location in comments). {PARTIAL FILL:77818} Active methylPREDNISol one (MEDROL DOSEPACK) 4 mg tablet follow package directions 21 tablet Active Active Problems No known active problems Immunizations Immunization Administration Dates Next Due COVID-19 (Pre-01/06) Pfizer Vaccine, mRNA, PF INFLUENZA, SPLIT VIRUS, TRIVALENT W/ PRESERVATIV E IM 12/03/2010 Influenza High-Dose Trivalent Preservative Free IM 11/25/2018,11/13/2016 Influenza Quadrivalent Preservative Free IM 11/16 Influenza Quadrivalent w/ Preservative IM 2015 Influenza Trivalent Adjuvanted Preservative free IM 11/24/2017 Pneumococcal conjugate PCV13 11/13/2016 Pneumococcal polysaccharide PPSV23 [...] 2000 ABDOMINAL AORTIC ANEURYSM (AAA) SCREENING 05/16/2015 INFLUENZA VACCINE (#1) 2024 9, 11/24/2017, 11/13/2016, Additional history exists COVID-19 VACCINE (2024- season) 2024 05/31/2020, 05/09/2020 RSV VACCINE (1 - 1-dose [...] [place] Care Teams Costumer Assistant Relationship Specialty Start Date End Date Rocky Nelson MD [address] [place] [phone] PCP - General Internal Medicine 07/15/17 Additional Source Comments The information contained in this document represents components of the legal health record. It is not the complete legal health record.[facility]
[2024-11-26] MEDS: iohexoL 350 MG/ML 100 ML INFUS..BTL IV (09:11)
[2024-11-26 10:50] LABS: Creatinine POC 0.7 mg/dL (0.5-1.4); GFR POC > 60
== END 2024-11-26 08:00 | disposition home or self-care (01) ==
LOC: HO.CT 07:59
PROVIDERS: PCP Internal Medicine; Visit Provider Urology
DX: R31.0 Gross hematuria (principal)
CPT/HCPCS: 74178; 82565; Q9967

== ENCOUNTER → 2024-11-26 08:00 | Outpatient (BNV) | payer MEDICARE, SELFPAY | PROVIDERS: PCP Internal Medicine; Visit Provider Radiology Diagnostic Radiology | DX: R31.0 Gross hematuria (principal) | CPT/HCPCS: 74178 ==

== ENCOUNTER 2024-12-21 15:49 | Outpatient (AMB) | payer MEDICARE, SELFPAY ==
[2024-12-21 16:03] VITALS: BP 158/82; PULSE 90; TEMP 36.3; O2SAT 95; BMI 28.9
--- NOTE | 2024-12-21 16:03 | A.OFFPC_ITS ---
Vital Signs 12/21/24 16:03 Height 5 ft 8 in Weight 190 lb 2 oz BMI 28.9 BP 158/82 H Blood Pressure Location Lt brachial Position Sitting Pulse 90 Pulse Source Pulse Oximeter Temp 97.3 F Temp Source Temporal Artery Scan Pulse Oximetry (%) 95 Oxygen Delivery Method Room Air Intake Visit Reasons: DM - see comments Allergies No Known Allergies (No Known Allergies*) Allergy (Verified 12/21/24 16:07) Medication List - Last Reconciled 12/21/24 by Rocky Nelson MD aspirin (Adult Aspirin Regimen) 81 mg PO DAILY benazepril 40 mg PO DAILY 90 days cholecalciferol (vitamin D3) 25 mcg PO DAILY multivitamin 1 tab PO DAILY omega-3 fatty acids (Fish Oil Concentrate) 1,000 mg PO DAILY rosuvastatin 5 mg PO DAILY tamsulosin 0.4 mg PO BEDTIME Tobacco use date assessed: 12/21/24 Fall risk assessment: No Falls in past year Last assessed Fall Risk: 12/21/24 Dental Screening Dental Screen Date: 12/21/24 Did you have a dental visit in the last 12 months?: Yes Did you have a dental problem in the last 6 months where you did not have access to dental care?: No Was dental information given to patient?: Patient has dentist [facility] Medical History Impaired fasting blood sugar Peptic ulcer disease Anxiety and depression Erectile dysfunction GERD (gastroesophageal reflux disease) DDD (degenerative disc disease), lumbar Hypercholesteremia Hypertension Surgical History Hx of colonoscopy History of inguinal hernia repair Hx of umbilical hernia repair Family History Father Esophageal cancer Hypertension Mother Hypertension Sister No problems noted. Social History Housing: House Alcohol intake: never Patient Tobacco Use Status: Never used Tobacco Tobacco use type: Cigarette e-Cigarette/Vaping Use: Never Used Second Hand Smoke Exposure: No service: No Current occupational status: retired Cognitive needs: No Hearing needs: No Vision needs: Yes (Glasses) Questionnaire PHQ-9 Over the last 2 weeks, how often have you been bothered by any of the following problems? 1. Little interest or pleasure in doing things: not at all 2. Feeling down, depressed, or hopeless: not at all 3. Trouble falling or staying asleep, or sleeping too much: not at all 4. Feeling tired or having little energy: nearly every day 5. Poor appetite or overeating: more than half the days 6. Feeling bad about yourself - or that you are a failure or have let yourself or your family down: not at all 7. Trouble concentrating on things, such as reading the newspaper or watching television: not at all 8. Moving or speaking so slowly that other people could have noticed. Or the opposite - being so fidgety or restless that you have been moving around a lot more than usual: more than half the days 9. Thoughts that you would be better off or of hurting yourself in some way: not at all Total score: 7 Depression Screening Interpretation: Positive Depression Screening Done: Yes Source: Developed by Drs. Farhan Fuentes, Tavia Meléndez, Surendra Dumont and colleagues, with an educational merle from [employer]. Thrive Questionnaire Date Thrive assessed: 07/15/24 I am a: Patient What is your living situation today?: I have a steady place to live Within the past 12 months, did the food you bought not last and you didn't have the money to get more?: Never true Within the past 12 months, did you worry whether your food would run out before you got money to buy more?: Never true Do you have trouble paying for medicines?: No Do you have trouble getting transportation to medical appointments?: No Do you have trouble paying your heating and electricity bill?: No Do you have trouble taking care of your child, family member or friend?: No Do you have trouble with day-to-day activities such as bathing, preparing meals, shopping, managing finances, etc.?: No Are you currently unemployed and looking for a job?: Yes Are you interested in more education?: No Please select the resources that you would like help with: None Currently or been in a relationship where the following occur: No concerns reported THRIVE Score: 0 AUDIT C Alcohol Use Questionnaire (AUDIT-C) 1. How often do you have a drink containing alcohol?: Never 3. How often do you have six or more drinks on one occasion?: Never Total Score: 0 DIEGO-7 AMB Questionnaire DIEGO-7 Date DIEGO - 7 assessed: 07/15/24 Feeling nervous, anxious, or on edge: 0 = Not at all Not being able to stop or control worryin = Not at all Worrying too much about different things: 0 = Not at all Trouble relaxin = Not at all Being so restless that it is hard to sit still: 0 = Not at all Becoming easily annoyed or irritable: 0 = Not at all Feeling afraid as if something awful might happen: 0 = Not at all Total DIEGO-7 score (0-4 normal; 5-9 mild; 10-14 moderate; 15-21 severe): 0 Source: Developed by Drs. Farhan Fuentes, Tavia Meléndez, Surendra Dumont and colleagues, with an educational merle from [employer]. Physical exam (Primary Care) Vital Signs: Last Vital Signs Temp 97.3 F 12/21/24 16:03 Pulse 90 12/21/24 16:03 BP 158/82 H 12/21/24 16:03 Pulse Ox 95 12/21/24 16:03 Oxygen Delivery Method Room Air 12/21/24 16:03 BMI result Body Mass Index 28.9 Tobacco/Smoking Status: Tobacco use Status Tobacco use date assessed 12/21/24 12/21/24 16:08 Patient Tobacco Use Status Never used Tobacco 12/21/24 16:08 Tobacco use type Cigarette 12/21/24 16:08 e-Cigarette/Vaping Use Never Used 12/21/24 16:08 PHQ-9: PHQ-9 Score PHQ-9: Total score 7 12/21/24 16:08 Depression Screening Interpretation: Positive Thrive Assessment: Date of Thrive Assessment Date Thrive assessed 07/15/24 12/21/24 16:08 Currently or been in a relationship where the following occur: No concerns reported Const General: alert; No acute distress Eyes Conjunctivae: conjunctivae normal Resp Auscultation: clear to auscultation bilaterally Cardio Rate: regular rate Rhythm: regular rhythm GI Inspection: Yes normal to inspection Extrem General: Yes normal to inspection and No edema Results AMB Hemoglobin A1c AMB Hemoglobin A1c 6.0 % Last Edit by Krystin Castano CMA on 10/07/25 16:13 Results Reviewed Results Reviewed: Laboratory Last Values Hgb A1c (Clinic) 6.0 % (4.0-6.0) 12/21/24 16:08 Coding Level of Care Code Est Pt Level 4 (92390) Complex EM visit Add On G2211 Diagnoses Type 2 diabetes mellitus with hyperglycemia E11.65 Essential hypertension I10 Hypertension type: essential hypertension Hypercholesteremia E78.00 Gastroesophageal reflux disease without esophagitis K21.9 Esophagitis presence: without esophagitis Hematuria R31.9 Enlarged prostate N40.0 DDD (degenerative disc disease), lumbar M51.36 Assessment & Plan Assessment & Plan (1) Type 2 diabetes mellitus with hyperglycemia: Comment: [place] Code(s): E11.65 - Type 2 diabetes mellitus with hyperglycemia Category: Medical Plan: Decrease the amount of carbohydrate intake, pasta, bread, rice and potatoes are all sugar and that is aside from all the sweet stuff, remember that fruits are good but they are Sweet also. Hemoglobin A1c goal of less than 7.0. Patient is diet controlled (2) Hypertension: Code(s): I10 - Essential (primary) hypertension Category: Medical Qualifiers: Hypertension type: essential hypertension Qualified Code(s): I10 - Essential (primary) hypertension Plan: Continue with blood pressure medication. Decrease salt intake and exercise on benazepril 40 mg once a day (3) Hypercholesteremia: Code(s): E78.00 - Pure hypercholesterolemia, unspecified Category: Medical Plan: Avoid fried foods, chicken skin, eggs, butter margarine, pastries and meat. Be it pork or beef they have a lot of cholesterol LDL goal of less than 100 and triglyceride of less than 150 on rosuvastatin 5 mg once a day (4) GERD (gastroesophageal reflux disease): Code(s): K21.9 - Gastro-esophageal reflux disease without esophagitis Category: Medical Qualifiers: Esophagitis presence: without esophagitis Qualified Code(s): K21.9 - Gastro-esophageal reflux disease without esophagitis Plan: Avoid the foods that causes that usually spicy foods, tomato products, juices, coffee, soda and foods that your sensitive to. After eating do not lie down, allow 3-4 hours before in lie down. And keep the head of bed above 30 degrees to avoid the acid from going up. (5) Hematuria: Code(s): R31.9 - Hematuria, unspecified Category: Medical Plan: Patient had a workup done by Urology and this was negative (6) Enlarged prostate: Comment: July 2024 Code(s): N40.0 - Benign prostatic hyperplasia without lower urinary tract symptoms Category: Medical Plan: Continue with tamsulosin (7) DDD (degenerative disc disease), lumbar: Comment: MRI 2008 with disc herniation with compression L5 Code(s): M51.36 - Other intervertebral disc degeneration, lumbar region Category: Medical Plan: Narcotic pain meds: Is being prescribed with the understanding that these medications are potentially addictive and should be used only when absolutely necessary and must always be secured. Any remaining pills should be safely disposed off appropriately. Patient is advised that narcotics can impaired judgment and one should not drive or operate heavy machinery while taking these medications. Never share these medications with anybody and do not leave them unattended. They will not be replaced under any circumstances. Plan History of Present Illness The patient is a 74-year-old male presenting for a follow-up visit to manage chronic conditions including hypertension, hypercholesterolemia, diabetes mellitus, and benign prostatic hyperplasia. The patient has a history of hypertension, currently managed with benazepril 40 mg once daily. Blood pressure readings at home have been inconsistent, with recent measurements around 150/90 mmHg, indicating suboptimal control. Hypercholesterolemia is being managed with rosuvastatin 5 mg daily, with an LDL goal of less than 100 mg/dL. The patient's LDL was last recorded at 96 mg/dL, which is within the target range. The patient has a history of lumbar degenerative disc disease, which contributes to chronic pain. Gastroesophageal reflux disease (GERD) is part of the patient's medical history, though specific management details were not discussed in this visit. The patient was diagnosed with a tubular adenoma of the colon, with the last colonoscopy performed in July 2021. Diabetes mellitus is diet-controlled, with a recent hemoglobin A1c of 6.0%. The goal is to maintain an A1c below 7.0%, and the patient is advised to continue current dietary measures. The patient has a history of nephrolithiasis and benign prostatic hyperplasia (BPH), managed with tamsulosin to aid bladder emptying. A recent urological workup was negative for stones, and the patient reports nocturia once or twice per night, indicating effective management with tamsulosin. Health Maintenance - Colonoscopy performed in July 2021 for surveillance of tubular adenoma - Recent flu vaccination received - Inquiry about shingles vaccination status, advised to confirm with pharmacy Social History Review of Systems - Cardiovascular: Reports elevated blood pressure readings at home, denies chest pain or palpitations. - Genitourinary: Reports nocturia once or twice per night, denies dysuria or hematuria. Physical Exam Results - Labs: Hemoglobin A1c increased from 5.8% to 6.0%, LDL cholesterol at 96 mg/dL. - Imaging: Recent urological workup negative for nephrolithiasis. Plan Patient was informed and verbally consented to the use of an ambient scribe for clinic note documentation during this visit. 1. Hypertension The patient's hypertension is currently managed with benazepril 40 mg once daily. Home blood pressure readings have been elevated, around 150/90 mmHg, indicating the need for better control. The patient is advised to monitor blood pressure regularly at home and report any significant changes. 2. Hypercholesterolemia The patient is on rosuvastatin 5 mg daily, with an LDL goal of less than 100 mg/dL. The most recent LDL level was 96 mg/dL, which is within the target range. 3. Diabetes Mellitus The patient's diabetes is diet-controlled, with a recent hemoglobin A1c of 6.0%. The goal is to maintain an A1c below 7.0%, and the patient is advised to continue current dietary measures. 4. Benign Prostatic Hyperplasia The patient is managed with tamsulosin to aid bladder emptying. A recent urological workup was negative for stones, and the patient reports nocturia once or twice per night, indicating effective management with tamsulosin. Discussion Notes During the visit, we discussed the management of hypertension, emphasizing the importance of regular home blood pressure monitoring and maintaining a target of 120/80 mmHg. For hypercholesterolemia, the patient is advised to continue rosuvastatin with a goal LDL of less than 100 mg/dL. We reviewed the diabetes management plan, aiming to keep the hemoglobin A1c below 7.0% through diet control. The patient is to continue tamsulosin for benign prostatic hyperplasia, as it effectively reduces nocturia. Patient Instructions - Monitor blood pressure at home regularly and report any significant changes. - Continue taking rosuvastatin 5 mg daily for cholesterol management. - Maintain a diet to keep hemoglobin A1c below 7.0%. - Continue tamsulosin for bladder management and report any changes in urinary habits. Orders: Orders AMB Hemoglobin A1c Today Z13.9 - Encounter for screening, unspecified Medications: Refilled tamsulosin 0.4 mg PO BEDTIME 90 caps 3RF R33.9 - Retention of urine, unspecified
--- OUTSIDE RECORDS SUMMARY | 2024-12-21 18:46 | XMS_ITS | Clinical Summary ---
Author Organization [facility] Address [address] [place], [place] [id number] Phone Care Team Providers Care Core Man Name Role Phone Rocky Nelson MD Primary Care Provider [phone] Allergies No known active allergies Medications pravastatin (PRAVACHOL) 40 MG tablet Take 40 mg by mouth daily. Active benazepril (LOTENSIN) 20 MG tablet Take 20 mg by mouth daily. Active oxyCODONE-aceta minophen (PERCOCET) 5-325 mg per tablet Take 1 tablet by mouth every 4 (four) hours as needed for pain (specific location in comments). {PARTIAL FILL:73640} Active methylPREDNISol one (MEDROL DOSEPACK) 4 mg [...] [place] MED[place] REPLACEMENT Care Teams Core Man Relationship Specialty Start Date End Date Rocky Nelson MD [address] [place] [id number] PCP - General Internal Medicine 07/15/17 Additional Source Comments The information contained in this document represents components of the legal health record. It is not the complete legal health record.[facility]
--- OUTSIDE RECORDS SUMMARY | 2024-12-21 18:47 | XMS_ITS | Encounter Summary ---
Author Organization [facility] Address [address] [place] [id number] Phone Care Team Providers Care Store Manager Name Role Phone Rocky Nelson MD Primary Care Provider [phone] Reason for Referral * Physical Therapy (Routine) - Closed Specialty Diagnoses / Procedures Referred By Caleb pritchard Referred To Contact Physical Therapy Diagnoses Encounter for rehabilitation System, Provider Not In, PhD [id number] [place] [address] Phone: tel: Referral ID Status Reason Start Date Expiration Date Visits Re quested Visits Authorized [id number] Closed 07/17/2017 03/16/2018 99 99 Encounter Details Date Type Department Care Team (Latest Contact Info) Description 07/17/2017 Transcribe Orders [facility] [address] [place] [id number] InstrumGilmar MD [address] [place] [address] [place] [address] Encounter for rehabilitation (Primary Dx) Social History [...] Diagnoses Orde r Schedule Ambulatory referral to [facility] Physical Therapy Outpatient Referral Routine Encounter for rehabilitation Ordered: 07/17/2017 documented as of this encounter Visit Diagnoses Diagnosis Encounter for rehabilitation- Primary documented in this encounter Care Teams Store Manager Relationship Specialty Start Date End Date Rocky Nelson MD [address] [place] [address] [address] [place] [address] PCP - General Internal Medicine 07/15/17 documented as of this encounter Additional Source Comments The information contained in this document represents components of the legal health record. It is not the complete legal health record.[facility]
== END 2024-12-21 16:52 | disposition home or self-care (01) ==
LOC: HO.HMCH 15:50
PROVIDERS: PCP Internal Medicine; Visit Provider Internal Medicine
DX: E11.65 Type 2 diabetes mellitus with hyperglycemia (principal); I10 Essential (primary) hypertension; E78.00 Pure hypercholesterolemia, unspecified; K21.9 Gastro-esophageal reflux disease without esophagitis; R31.9 Hematuria, unspecified; N40.0 Benign prostatic hyperplasia without lower urinary tract symptoms; M51.369 Other intervertebral disc degeneration, lumbar region without mention of lumbar back pain or lower extremity pain; Z13.9 Encounter for screening, unspecified

== ENCOUNTER → 2024-12-21 15:49 | Outpatient (BNVA) | payer MEDICARE, SELFPAY | PROVIDERS: PCP Internal Medicine; Visit Provider Internal Medicine | DX: E11.65 Type 2 diabetes mellitus with hyperglycemia (principal); I10 Essential (primary) hypertension; E78.00 Pure hypercholesterolemia, unspecified; K21.9 Gastro-esophageal reflux disease without esophagitis; R31.9 Hematuria, unspecified; M51.369 Other intervertebral disc degeneration, lumbar region without mention of lumbar back pain or lower extremity pain; N40.1 Benign prostatic hyperplasia with lower urinary tract symptoms; R33.8 Other retention of urine | CPT/HCPCS: 83036; 96127; 99212 ==